=== PATIENT | female | born 1990 | race Caucasian/White ===

== ENCOUNTER → 2016-10-05 | Outpatient (CLI) | payer OTHER ==
[~2016-10-05] MED LIST: PRENTAB26 PO
[2016-10-05 18:10] LABS: GTGD 50 Grams
== END | disposition home or self-care (01) ==
LOC: C.LAB1850 13:51
PROVIDERS: ATTEND Obstetrics & Gynecology
DX: Z34.82 Encounter for supervision of other normal pregnancy, second trimester (principal)

== ENCOUNTER → 2016-12-21 | Outpatient (CLI) | payer OTHER ==
[2016-12-21 19:20] LABS: URINE APPEARANCE CLOUDY (CLEAR); URINE BILIRUBIN NEG (NEG); URINE COLOR DK YELLOW; URINE EPITHELIAL CELL AUTO >30 /lpf (0-5); URINE NITRITE NEG (NEG); URINE SPECIFIC GRAVITY 1.022 (1.000-1.030); UROBILINOGEN NEG (NEG)
[2016-12-21 19:23] LABS: MANUAL MICROSCOPIC REQUIRED? NO; REVIEW REQ? NO
== END | disposition home or self-care (01) ==
LOC: C.LABSPEC 18:03
PROVIDERS: ATTEND Obstetrics & Gynecology
DX: Z34.83 Encounter for supervision of other normal pregnancy, third trimester (principal)

== ENCOUNTER → 2016-12-21 | Outpatient (CLI) | payer OTHER ==
[2016-12-21 16:40] LABS: HEMATOCRIT 32.4 % (37-47)
[2016-12-21 18:52] LABS: GTGD 50 Grams
== END | disposition home or self-care (01) ==
LOC: C.LAB1850 15:46
PROVIDERS: ATTEND Obstetrics & Gynecology
DX: Z34.83 Encounter for supervision of other normal pregnancy, third trimester (principal)

== ENCOUNTER → 2017-01-17 | Outpatient (CLI) | payer OTHER | END | disposition home or self-care (01) | LOC: C.LAB1850 08:43 | PROVIDERS: ATTEND Obstetrics & Gynecology | DX: O28.1 Abnormal biochemical finding on antenatal screening of mother (principal) ==

== ENCOUNTER → 2017-02-14 | Outpatient (CLI) | payer OTHER | END | disposition home or self-care (01) | LOC: C.LABSPEC 15:28 | PROVIDERS: ATTEND Obstetrics & Gynecology | DX: Z34.83 Encounter for supervision of other normal pregnancy, third trimester (principal) ==

== ENCOUNTER 2017-02-17 22:54 | Outpatient (CLI) | payer OTHER ==
[~2017-02-17] VITALS: Ht 170.2 cm; Wt 74.1 kg
[2017-02-18 00:07] VITALS: Ht 170.2 cm; Wt 74.1 kg
== END 2017-02-18 03:00 | disposition home or self-care (01) ==
LOC: C.LD 22:54 → C.OPB 22:54
PROVIDERS: ATTEND Obstetrics & Gynecology
DX: O62.9 Abnormality of forces of labor, unspecified (principal); Z3A.37 37 weeks gestation of pregnancy

== ENCOUNTER 2017-02-22 03:23 | Outpatient (CLI) | payer OTHER ==
[~2017-02-22] VITALS: Ht 170.2 cm; Wt 74.0 kg
[2017-02-22 04:59] VITALS: Ht 170.2 cm; Wt 74.0 kg
--- NOTE | 2017-02-27 12:28 | EDITING REQUIRED CODING QUERY ---
DIAGNOSIS NEEDED To promote full compliance with coding requirements relating to patient care, physician participation is requested in all cases of hims coder uncertainty. Please assist us with the question(s) below: Coding Question: The patient received care in labor and delivery on 02/22/17 as noted within the record. Please document the diagnosis that is being addressed by the medication/treatment. Provider Response: DIAGNOSIS: Labor check. Not in labor Thank you for your assistance, Reina Perales - Machine Filler Shredder
== END 2017-02-22 06:25 | disposition home or self-care (01) ==
LOC: C.LD 03:23 → C.OPB 03:23
PROVIDERS: ATTEND Obstetrics & Gynecology
DX: Z34.83 Encounter for supervision of other normal pregnancy, third trimester (principal); Z3A.37 37 weeks gestation of pregnancy

== ENCOUNTER 2017-02-25 14:22 | Inpatient (IN) | payer OTHER ==
[~2017-02-25] VITALS: Ht 170.2 cm; Wt 74.5 kg
[2017-02-25 15:03] VITALS: Ht 170.2 cm; Wt 74.5 kg
[2017-02-25] MEDS ORDERED: NURSING VERBAL MED ORDER ONE ×2 (15:30)
[2017-02-25] MEDS ORDERED: LACTATED RINGER'S 1000ML 1,000 ML IV SCH (15:45)
[2017-02-25] MEDS ORDERED: PENICILLIN G POTASSIUM IV 3 MU in DEXTROSE 5% 100ML IV PRN (15:45)
[2017-02-25 16:00] LABS: HEMATOCRIT 36.6 % (37-47); MEAN CELL VOLUME 98.1 fL (80-100); MEAN CORPUSCULAR HEMOGLOBIN 34.3 pg (25-34); PLATELET COUNT 199 K/uL (130-400); RED BLOOD COUNT 3.73 M/uL (4.2-5.4); WHITE BLOOD COUNT 12.92 K/uL (4.8-10.8)
[2017-02-25] MEDS ORDERED: PENICILLIN G POTASSIUM IV 6 MU in DEXTROSE 5% 250ML IV SCH (16:00)
[2017-02-25] MEDS ORDERED: LACTATED RINGER'S 1000ML 500 ML IV PRN ×2 (17:52→18:53)
[2017-02-25] MEDS ORDERED: OXYTOCIN 30 UNITS/500ML NSS IV PRN ×2 (18:00→22:45)
[2017-02-25] MEDS ORDERED: BUPIVACAINE 0.25% 30 ML VIAL ONE (18:10)
[2017-02-25] MEDS ORDERED: FENTANYL 2MCG/ML ROPIV 1.25MG/ML 100ML BAG EPI ONE (18:10)
[2017-02-25] MEDS ORDERED: EpHEDrine SULFATE INJ 50 MG/ML AMP ONE (18:10)
[2017-02-25] MEDS ORDERED: FENTANYL CITRATE INJ 50 MCG/1 ML 2 ML VIAL ONE (18:11)
[2017-02-25] MEDS ORDERED: NALBUPHINE HCL INJ 10 MG/ML AMP IV PRN (19:00)
[2017-02-25] MEDS ORDERED: ONDANSETRON INJ 2 MG/ML 2 ML VIAL IV PRN (19:00)
[2017-02-25] MEDS ORDERED: DiphenhydrAMINE HCL 50 MG/ML VIAL IV PRN (19:00)
[2017-02-25] MEDS ORDERED: NALOXONE HCL INJ 0.4 MG/1 ML VIAL/CARP IV PRN (19:00)
[2017-02-25] MEDS ORDERED: EpHEDrine SULFATE INJ 50 MG/ML AMP IV PRN (19:00)
[2017-02-25] MEDS ORDERED: FENTANYL 2MCG/ML ROPIV 1.25MG/ML 100ML BAG EPI PRN (19:00)
[2017-02-25] MEDS ORDERED: ACETAMINOPHEN 325 MG TAB PO PRN (22:45)
[2017-02-25] MEDS ORDERED: BENZOCAINE 20% AER SPR 82.5 GM CAN EXT PRN (22:45)
[2017-02-25] MEDS ORDERED: SUPERCREAM 0.870 % 15GM JAR EXT PRN (22:45)
[2017-02-25] MEDS ORDERED: LANOLIN OINT EXT PRN ×2 (22:45)
--- NOTE | 2017-02-25 23:22 | Anesthesia Procedure Note ---
Anesthesia Epidural Removal Nt Date & Time Feb 25, 2017 at 23:22 Vital Signs Pain Intensity: 0.0 Notes Mental Status: alert / awake / arousable, participated in evaluation Nausea / Vomiting: adequately controlled Pain: adequately controlled Airway Patency, RR, SpO2: stable & adequate BP & HR: stable & adequate Hydration State: stable & adequate Neuraxial Anesthesia: was administered Anesthetic Complications: no major complications apparent, pt satisfied with anesthetic care Epidural: removed without complications, with tip intact
[2017-02-26] VITALS (8 sets, daily range): BP systolic 106–135; BP diastolic 60–83; PULSE 49–74; TEMP 36.4–37.1; O2SAT 98–99
[2017-02-26] MEDS: IBUPROFEN 600 MG TAB PO PRN ×5 (00:02→20:00)
[2017-02-26] MEDS ORDERED: NURSING VERBAL MED ORDER ONE (01:45)
[2017-02-26] MEDS ORDERED: CALCIUM CARBONATE 500 MG CHEWABLE PO PRN (02:00)
--- NOTE | 2017-02-26 03:01 | DELIVERY SUMMARY ---
DATE OF OPERATION: 02/25/2017 DELIVERY NOTE: The patient is a 26-year-old 6, para 3-0-2-3 white female, who with a due date of 03/10/2017 presented with rupture of membranes at approximately 1100 hours today. This was confirmed in labor & delivery several hours later. She received penicillin G prophylaxis because of group B strep positive status. Fluid was clear. She did have a forebag of fluid that was ruptured when she was 4 cm and 90% effaced. Pitocin augmentation was begun. She received epidural and analgesic, which was effective. She pushed effectively over intact perineum for delivery of a viable female . Cord was somewhat short. The infant was placed on the mother's abdomen for attention stimulation after the cord was clamped and cut. There placenta was expressed intact with a 3-vessel cord. A left labial abrasion was bleeding and therefore was repaired with a single figure of eight stitch of 3-0 Vicryl. Estimated blood loss was 300 mL. Mother and were doing well after delivery. I attest to the content of the Intraoperative Record and any orders documented therein. Any exceptions are noted below. MTDD
[2017-02-26] MEDS ORDERED: ACETAMINOPHEN/CODEINE 300/30MG TAB PO PRN (04:15)
[2017-02-26] MEDS: ACETAMINOPHEN/CODEINE 300/30MG TAB PO PRN ×3 (04:17→22:14)
--- NOTE | 2017-02-26 06:44 | OB/GYN Progress Note ---
COSTUME SPECIALIST Progress Note Date of Service Feb 26, 2017. Subjective conversation w/ patient Ambulation: ambulating normally Voiding: no voiding problems Passing Gas: No Diet Tolerance: Nausea/Vomiting Lochia: Small Feeding Type: Breast Feeding Pain: 8/10 back pain Review of Systems Constitutional: No fever, No chills, No sweats Respiratory: No cough, No shortness of breath, No dyspnea on exertion Cardiac: No chest pain, No palpitations Abdomen: + pain, + nausea, + vomiting Sharp back pain that radiates up and down spine, rates as an 8/10 in severity Objective Vital Signs Date Time Temp Pulse Resp B/P (MAP) Pulse Ox O2 Delivery O2 Flow Rate FiO2 02/26/17 04:20 36.4 67 18 135/83 (100) 98 Room Air 02/26/17 00:50 36.6 74 18 128/60 (82) Room Air 02/26/17 00:50 Room Air Physical Exam General Appearance: WELL-APPEARING, NO APPARENT DISTRESS Respiratory/Chest: lungs clear, no accessory muscle use Cardiovascular: regular rate, rhythm, no murmur Abdomen: non tender, soft Fundus: Firm, Non-Tender, Relation to Umbilicus (at the umbilicus) Extremities: non-tender, no calf tenderness Laboratory Results Last 24 Hours Test 02/25/17 15:35 02/25/17 15:50 02/26/17 04:44 Amniotic Fluid Protein POS White Blood Count 12.92 K/uL Red Blood Count 3.73 M/uL Hemoglobin 12.8 g/dL Hematocrit 36.6 % Mean Corpuscular Volume 98.1 fL Mean Corpuscular Hemoglobin 34.3 pg Mean Corpuscular Hemoglobin Concent 35.0 g/dl RDW Standard Deviation 46.9 fL RDW Coefficient of Variation 13.1 % Platelet Count 199 K/uL Mean Platelet Volume 10.0 fL Assessment and Plan Post- Day Number: 1 Continue Routine Care: Resident Physician Supervision Note: I interviewed and examined the patient. Discussed with Dr. Cruz and agree with findings and plan as documented in the note. Any exceptions or clarifications are listed here: [None] Documented By: Mariia Calderon 26 year old female Post Day 1 A-, GBS+, Rubella immune Encourage ambulation, control pain and encourage breast feeding, monitor lochia Continue routine post care
[2017-02-26 07:26] LABS: HEMATOCRIT 33.5 % (37-47)
[2017-02-26] MEDS ORDERED: PRENATAL VITAMIN TAB PO SCH (08:00)
[2017-02-26] MEDS: PRENATAL VITAMIN TAB PO SCH (08:41)
[2017-02-26] MEDS: DOCUSATE SODIUM 100 MG CAP PO SCH ×2 (08:41→20:00)
[2017-02-26] MEDS ORDERED: CYCLOBENZAPRINE HCL 10 MG TAB PO PRN (12:45)
[2017-02-26] MEDS ORDERED: BISACODYL 5 MG TABEC PO SCH (20:00)
[2017-02-27] MEDS: IBUPROFEN 600 MG TAB PO PRN (03:26)
[2017-02-27 07:10] VITALS: BP 110/74; PULSE 52; TEMP 37.2; O2SAT 98
--- NOTE | 2017-02-27 07:19 | OB/GYN Progress Note ---
WILDLIFE MANAGEMENT PROFESSOR Progress Note Date of Service Feb 27, 2017. Subjective conversation w/ patient, physical exam Ambulation: ambulating normally Voiding: no voiding problems, no incontinence Passing Gas: Yes Diet Tolerance: Regular Diet Lochia: Small Feeding Type: Breast Feeding Pain: 02/24 Review of Systems Constitutional: No fever, No chills, No sweats Respiratory: No cough, No shortness of breath Cardiac: No chest pain, No palpitations Abdomen: No pain, No nausea, No vomiting Objective Vital Signs Date Time Temp Pulse Resp B/P (MAP) Pulse Ox O2 Delivery O2 Flow Rate FiO2 02/26/17 23:30 36.5 54 18 117/71 (86) Room Air 02/26/17 23:30 99 Room Air 02/26/17 19:45 36.4 49 20 120/69 (86) Room Air 02/26/17 15:35 Room Air 02/26/17 15:35 37.0 57 16 121/79 (93) 99 Room Air 02/26/17 12:15 36.5 54 20 119/70 (86) 98 Room Air 02/26/17 12:00 37.1 53 18 120/73 (89) 98 Room Air 02/26/17 08:40 Room Air 02/26/17 08:40 37.0 59 18 106/65 (79) 98 Room Air Physical Exam General Appearance: WELL-APPEARING, NO APPARENT DISTRESS Respiratory/Chest: chest non-tender, lungs clear, no respiratory distress, no accessory muscle use Cardiovascular: regular rate, rhythm, no murmur Abdomen: normal bowel sounds, non tender, soft Fundus: Firm, Non-Tender, Relation to Umbilicus (1 cm below) Extremities: non-tender, no calf tenderness Assessment and Plan Post- Day Number: 2 Continue Routine Care: Day 2 A-, GBS-, Rubella immune Hgb 11.9 yesterday Encourage ambulation, encourage breast feeding and monitor lochia Patient to be discharged today Resident Physician Supervision Note: I was present with Dr. Cruz during the history and exam. I discussed the case with the resident and agree with the findings and plan as documented in the note. Any exceptions or clarifications are listed here: PPD#2 doing well. Discharge home today. Discharge instructions discussed. Documented By: Kristi Powell
--- NOTE | 2017-02-27 07:22 | Discharge Instructions ---
Discharge Instructions Date of Service Feb 27, 2017. Admission Reason for Admission: R/O Labor Discharge Discharge Diagnosis / Problem: Vaginal Delivery Discharge Goals Goal(s): Routine recovery after delivery Medications Continue Dispensed Medications: supercream, dermaplast, tucks, lansinoh Activity Recommendations Activity Limitations: per Instructions/Follow-up section . Instructions / Follow-Up Instructions / Follow-Up ACTIVITY RECOMMENDATIONS: * Gradual return to full activity over the next 2-3 weeks. * No lifting - nothing heavier than baby over the next 2-3 weeks. * Do not engage in vigorous exercise, sexual activity or sports until cleared by your physician. * Do not drive or operate any motorized equipment until cleared by your physician. * You may shower/bathe daily. MEDICATIONS: For discomfort or pain, you may use Acetaminophen (Tylenol), Ibuprofen (Advil), or Naproxen (Aleve) following the package directions. For constipation you may use Colace following the package directions. BREAST CARE: If you are not breast feeding: * Wear a supportive bra 24 hours a day for one to two weeks. * Avoid stimulating your breasts and nipples as much as possible during the first few weeks after delivery. * When taking a shower, have the warm water hit your back, not breasts. * When your breasts feel full, apply ice packs. Usually three to four times a day helps ease the discomfort. * Take a mild pain medication (Tylenol / Motrin) when you are uncomfortable. If breast feeding: * Use breast milk to lubricate nipples. Lansinoh cream may be used for sore nipples. You do not need to remove cream prior to breast feeding. If using a different brand of cream, check the label for directions regarding removal of cream prior to nursing. * Wear a supportive bra. * If having problems with breasts or breast feeding, call a home planning consultant salesperson or your health care provider. EPISIOTOMY CARE: After delivery, if you have an episiotomy (stitches), the following steps will ease discomfort and aid healing. * For the first 24 hours after delivery, place ice packs next to your episiotomy to help reduce swelling. * After the first 24 hour-period, sitz baths, either portable or in the tub, are suggested. A shower with a shower arm sprayed over the episiotomy may be comforting. * Nell care should be done after each voiding and bowel movement. Squirt warm water from a plastic bottle over the perineum (region of the body between the anus and urinary opening) and pat dry. * Use Dermoplast to ease discomfort. Shake container. Dinosaur directly over the episiotomy. Place a Tucks on a clean sanitary pad next to your episiotomy. SPECIAL CARE INSTRUCTIONS: When you are discharged from the hospital, it is important for you to follow the instructions listed below: * During the first week at home, you should be able to care for yourself and your baby. In addition, the usual light household activities are encouraged. * Limit your activities to the way you feel. Do not try to clean the house or move furniture. Be sensible. * If you actively engage in sports and have done so up until the time of your delivery, you may resume these activities as soon as you feel able. This may take up to one month or even longer. Use good judgment. * Continue to take your vitamins for at least six weeks after the of your baby. * Your diet need not be limited unless you were on a special diet before your delivery. Breast-feeding mothers need around 2500 calories per day and at least 64-80 ounces of fluid per day (8 to 10 glasses). * You should eat foods from the four major food groups. Crash diets or fad diets are to be avoided. Eating lean meats, fresh fruits and vegetables, low-fat dairy products, high fiber foods and a regular exercise program, will help you get back to your pre- weight without putting your health at risk. * Constipation is sometimes a problem after delivery. Take a mild laxative as needed. If breast feeding, Milk of Magnesia is acceptable to use. You may use a suppository or Fleets enema if no episiotomy. * A daily shower or tub bath is suggested. Be sure to thoroughly and gently dry the perineum. * A bloody vaginal discharge will usually continue until around four weeks post . A small amount of bleeding may continue for as long as six weeks. Vaginal discharge changes from the bright red bleeding after delivery to pink then brownish and finally yellowish-pink before becoming white and disappearing. * Bleeding may increase with activity. Your first period may come in 4-8 weeks. If you are breast feeding, your period may be delayed even longer. * [place] (sex) can begin whenever both you and your partner feel comfortable and do not have any form of genital infection. It is recommended that you wait at least six weeks for internal and external healing to occur. If you have questions, please talk to your health care practitioner. A condom should be used to prevent infection and . * Foreplay, gentle intercourse and lubrication is very important the first several times to prevent pain. A water-based lubricant such as K-Y jelly or Astroglide may be used. * If you have RH negative blood and your baby is RH positive, you will receive RHOGAM by injection prior to discharge. The nurse will give you a card to keep with you that has the date and place that you received RHOGAM after delivery. * During your care, you had a Rubella screen done to check for the presence of rubella antibodies in your blood. If your test was negative, you will receive a Rubella vaccine prior to discharge. This vaccine may cause a fever, soreness at the injection site and flu-like symptoms. If these symptoms persist, notify your health care practitioner. is not advised for one month after a Rubella vaccine. * Verbalizes understanding of car seat law as reviewed with patient nursing. * Car Seat hand-out given and reviewed with patient by nursing. * Shaken baby information reviewed with patient by nursing. Call you doctor if: * Heavy bleeding (saturating several pads an hour) or passing clots the size of your fist. * A fever >101 degrees F (38.3 degrees C) on two occasions four hours apart and /or chills. * Unusual pain in the pelvic or vaginal areas. * "Baby Blues" lasting longer than two weeks. If you have any questions or concerns, call your health care practitioner at . FOLLOW UP VISIT: * Please call the office at to schedule a 6 week examination. It is important you keep this appointment. It is important for you to make arrangements for either yearly or twice yearly check-ups thereafter. Current Hospital Diet Patient's current hospital diet: Regular OB Diet Discharge Diet Recommended Diet: Regular Diet Pending Studies Studies pending at discharge: no Medical Emergencies . Who to Call and When: Medical Emergencies: If at any time you feel your situation is an emergency, please call 911 immediately. . Non-Emergent Contact Non-Emergency issues call your: Primary Care Provider, Extruder Operator Vertical . . "Provider Documentation" section prepared by Drake rCuz. . VTE Core Measure Inpt VTE Proph given/why not?: Treatment not indicated
[2017-02-27] MEDS: DOCUSATE SODIUM 100 MG CAP PO SCH (08:23)
[2017-02-27] MEDS: PRENATAL VITAMIN TAB PO SCH (08:23)
[2017-02-27 14:10] VITALS: BP_DIAS 74; PULSE 52; TEMP 37.2
== END 2017-02-27 14:10 | disposition other institution (70) | DRG 775 ==
LOC: C.OPB 14:22 → C.LD 14:25 → C.OPB 15:30 → C.LD 15:30 → C.OBG 02-26 00:58
PROVIDERS: ADMIT Obstetrics & Gynecology; ATTEND Obstetrics & Gynecology
PROC: 0HQ9XZZ Repair Perineum Skin, External Approach (ICD-10-PCS; principal; 2017-02-25)
PROC: 10E0XZZ Delivery of Products of Conception, External Approach (ICD-10-PCS; principal; 2017-02-25)
DX: O42.02 Full-term premature rupture of membranes, onset of labor within 24 hours of rupture (principal); Z37.0 Single live birth; O70.0 First degree perineal laceration during delivery; O99.824 Streptococcus B carrier state complicating childbirth; O99.334 Smoking (tobacco) complicating childbirth; F17.210 Nicotine dependence, cigarettes, uncomplicated; O99.52 Diseases of the respiratory system complicating childbirth; J45.909 Unspecified asthma, uncomplicated; Z3A.38 38 weeks gestation of pregnancy

== ENCOUNTER → 2018-04-16 | Outpatient (CLI) | payer OTHER | END | disposition home or self-care (01) | LOC: C.LAB1850 15:27 | PROVIDERS: ATTEND Obstetrics & Gynecology | DX: Z32.00 Encounter for pregnancy test, result unknown (principal) ==

== ENCOUNTER → 2018-04-18 | Outpatient (CLI) | payer OTHER | END | disposition home or self-care (01) | LOC: C.LAB1850 16:33 | PROVIDERS: ATTEND Obstetrics & Gynecology | DX: Z32.01 Encounter for pregnancy test, result positive (principal) ==

== ENCOUNTER 2018-12-09 12:05 | Inpatient (IN) ==
[2018-12-09 12:57] LABS: Basophils # (auto) 0.03 K/uL (0-0.2); Basophils % (auto) 0.3 %; Eosinophils # (auto) 0.23 K/uL (0-0.5); Eosinophils % (auto) 2.2 %; Hematocrit (blood only) 32.2 % (37-47); Immature Granulocytes # (auto) 0.06 K/uL (0.00-0.02); Immature Granulocytes % (auto) 0.6 %; Lymphocytes # (auto) 3.38 K/uL (1.2-3.4); Lymphocytes % (auto) 32.6 %; Mean Corpuscular Hgb Conc 34.2 g/dL (32-36); Mean Corpuscular Volume 93.3 fL (80-100); Mean Platelet Volume 10.8 fL (7.4-10.4); Monocytes # (auto) 0.75 K/uL (0.11-0.59); Monocytes % (auto) 7.2 %; Neutrophils # (auto) 5.91 K/uL (1.4-6.5); Neutrophils % (auto) 57.1 %; Platelet Count 195 K/uL (130-400); RDW Coefficient of Variation 13.4 % (11.5-14.5); RDW Standard Deviation 45.7 fL (36.4-46.3); Red Blood Count 3.45 M/uL (4.2-5.4); White Blood Count 10.36 K/uL (4.8-10.8)
[2018-12-09] MEDS ORDERED: LACTATED RINGER'S 500 ML IV ONE (13:02)
[2018-12-09 13:43] LABS: Albumin Level 2.2 gm/dl (3.4-5.0); BUN Creatinine Ratio 14.6 (10-20); Calcium 7.7 mg/dl (8.5-10.1); Creatinine Clr Calc Pharmacy 153.2 ml/min; Est GFR (African American) 142.5; Potassium 3.9 mmol/L (3.5-5.1)
[2018-12-09 13:45] LABS: Albumin Globulin Ratio 0.6 (0.9-2); Bilirubin,Total 0.2 mg/dl (0.2-1); Total Protein 6.2 gm/dl (6.4-8.2)
[2018-12-09 14:02] LABS: Total Protein Urine Random 32.8 mg/dl (0-11.9)
[2018-12-09 14:06] LABS: Amphetamines+Metham, Urine Neg (Neg); Barbiturates, Urine Neg (Neg); Benzodiazepine, Urine Neg (Neg); Cocaine, Urine Neg (Neg); MDMA (Ecstacy), Urine Neg (Neg); Methadone, Urine Neg (Neg); Opiate, Urine Neg (Neg); Phencyclidine, Urine Neg (Neg)
[2018-12-09] MEDS: LACTATED RINGER'S 1,000 ML IV SCH ×2 (14:38→17:28)
--- NOTE | 2018-12-09 15:28 | History & Physical Report ---
Date of Service December 09, 2018 Assessment & Plan (1) 38 weeks gestation of : (2) Elevated blood pressure affecting in third trimester, antepartum: suspect pt will meet criteria for gest htn. if so, will plan induction. pt aware. labs normal and 24hr urine <300mg protein. Cx favorable and would plan pit and arom. GBS neg. Rh neg. Patient aware of plan and criteria to meet dx. History of Present Illness Chief Complaint: sent from office with elevated bp Primary Care Provider: NO PCP 28yo at 38+ wks ega presents to L&D with above cc. Patient has had some noncompliance with visits per her record. Last week was seen and noted increased swelling. Bp was normal. Was advised to collect 24hr urine and return today for office visit. She states she had bp taken as soon as she was in room and bp 160/90 and immediately sent here. She has some headache and upper abdomen pain. She has heart burn feeling. Denies ctx, rom, vb. +FM. pnc c/b 1. poor compliance 2. LGSIL and hpv pos, h/o LEEP, needs colpo but no- showed that appt 3. anxiety/depression 4. h/o opiate addiction, now on subutex 5. smoker 6. rh neg 7. asthma pmh: as above prob list psh: leep x 2, roz, wisdom teeth Allergies Allergy/AdvReac Type Severity Reaction Status Date / Time morphine Allergy Severe ANAPHYLAXIS Verified 02/22/17 04:50 tramadol Allergy Severe ANAPHYLAXIS Verified 02/22/17 04:50 bee venom protein (honey bee) Allergy Unknown ANAPHYLAXIS Verified 02/22/17 0 4:50 Home Medications Home Medications Medication Instructions Recorded Confirmed Type PNV cmb#95-ferrous fumarate-FA 1 tab PO DAILY 12/09/18 12/09/18 History [] albuterol sulfate 2 puff INHALATION QID PRN 12/09/18 12/09/18 History biotin 1 mg PO DAILY 12/09/18 12/09/18 History buprenorphine HCl 8 mg SUBLINGUAL DAILY 12/09/18 12/09/18 History sertraline 100 mg PO DAILY 12/09/18 12/09/18 History Patient History Medical History Anxiety diagnosed at age 11- on Effexor Asthma diagnosed at age 10- uses Albuterol prn and Nebulizer prn Carpal tunnel syndrome 2017 Depression diagnosed at age 11- on Effexor now 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 Now on Subutex 8mg daily Ovarian cyst [place] teeth removed age 14 Surgical History H/O LEEP age 19 and 21 History of cholecystectomy 2016 Family History Father Diabetes Grandfather (Paternal) Diabetes Grandmother (Maternal) Diabetes Grandfather (Maternal) Diabetes Grandfather (Paternal) Heart attack Grandmother (Paternal) Heart attack Social History Preferred Language: Khmer Communication Ability: Effective Beliefs That Will Affect Care: None marital status: Current Living Situation: Spouse Feels Safe at Home: Yes Smoking Status: Current every day smoker Hx Alcohol Use: No Hx Substance Use: No Physical Exam Vital Signs (Past 24 Hours): Last Vital Signs Temp 36.7 C 12/09/18 12:51 Pulse 57 L 12/09/18 14:37 Resp 20 12/09/18 14:05 BP 137/82 12/09/18 14:37 Constitutional: WD/WN, vitals as above Respiratory: normal respiratory effort, lungs clear to auscultation Cardiovascular: Rate/Rhythm: regular rate and regular rhythm Gastrointestinal (Abdomen): soft gravid nt, efw 6-7# Musculoskeletal: +1 edema Neurologic: DTRs +2 no clonus Psychiatric: grossly normal Genitourinary: Manual OB Exam: + cervical dilation 3 cm, + cervical effacement 70% and + station -2 OB Exam Monitor Tracing: + external FHT monitor used (120 mod variability, reactive), + external uterine monitor used (irreg), + category I and + normal FHT variability cephalic by us
[2018-12-09] MEDS ORDERED: OXYTOCIN 30 UNITS/500 ML BAG IV PRN ×2 (16:16→22:08)
[2018-12-09] MEDS ORDERED: LACTATED RINGER'S 1,000 ML IV PRN ×2 (16:16→18:26)
[2018-12-09] MEDS ORDERED: fentaNYL citrate 100 MCG/2 ML VIAL ONE (17:24)
[2018-12-09] MEDS ORDERED: BUPIVACAINE 0.25% 30 ML VIAL ONE (17:24)
[2018-12-09] MEDS ORDERED: ePHEDrine sulfate 50 MG/ML AMP ONE (17:24)
[2018-12-09] MEDS ORDERED: fentaNYL 2MCG/ML ROPIV 1.25MG/ML 100 ML BAG EPI ONE (17:25)
[2018-12-09] MEDS ORDERED: NALOXONE HCL 1 MG in SODIUM CHLORIDE 0.9% 1000ML 1,000 ML IV PRN (18:26)
[2018-12-09] MEDS ORDERED: PROMETHAZINE HCL 6.25 MG in SODIUM CHLORIDE 0.9% 50 ML IV PRN (18:26)
[2018-12-09] MEDS ORDERED: NALOXONE HCL 0.4 MG/1 ML VIAL/CARP IV PRN (18:26)
[2018-12-09] MEDS ORDERED: ONDANSETRON INJ 2 MG/ML 2 ML VIAL IV PRN (18:26)
[2018-12-09] MEDS ORDERED: fentaNYL 2MCG/ML ROPIV 1.25MG/ML 100 ML BAG EPI PRN (18:26)
[2018-12-09] MEDS ORDERED: DiphenhydrAMINE HCL 50 MG/ML VIAL IV PRN (18:26)
[2018-12-09] MEDS ORDERED: NALBUPHINE HCL INJ 10 MG/ML AMP IV PRN (18:26)
[2018-12-09] MEDS ORDERED: ePHEDrine sulfate 50 MG/ML AMP IV PRN (18:26)
--- NOTE | 2018-12-09 18:26 | Anesthesiology Consultation ---
Date of Service December 09, 2018 Assessment & Plan (1) Elevated blood pressure affecting in third trimester, antepartum: Chart Review Chart Review: Acceptable Risk for Surgery and Patient NOT seen in Pre Admission Testing Consults Requested none ASA ASA2 Proposed Anesthesia Anesthesia Type: Labor Epidural Risk / Benefits Reviewed With: PT / POA / Parent / Guardian, Accepts Plan and Informed Consent Obtained NPO Date Last Intake of Fluids: 12/09/18 Time Last Intake of Fluids: 06:00 Date Last Intake of Solids: 12/09/18 Time Last Intake of Solids: 06:00 History Height/Weight Height: 5 ft 7 in Weight: 81.647 kg Allergies Allergy/AdvReac Type Severity Reaction Status Date / Time morphine Allergy Severe ANAPHYLAXIS Verified 02/22/17 04:50 tramadol Allergy Severe ANAPHYLAXIS Verified 02/22/17 04:50 bee venom protein (honey bee) Allergy Unknown ANAPHYLAXIS Verified 02/22/17 04:50 Medications Home Medications Medication Instructions Recorded Confirmed Last Taken PNV cmb#95-ferrous fumarate-FA 1 tab PO DAILY 12/09/18 12/09/18 12/08/18 15:00 [] albuterol sulfate 2 puff INHALATION QID PRN 12/09/18 12/09/18 Unknown biotin 1 mg PO DAILY 12/09/18 12/09/18 12/09/18 08:00 buprenorphine HCl 8 mg SUBLINGUAL DAILY 12/09/18 12/09/18 12/09/18 08:00 sertraline 100 mg PO DAILY 12/09/18 12/09/18 12/09/18 08:00 Active Medications Generic Name Dose Route Start Last Admin Trade Name Freq PRN Reason Stop Dose Admin Lactated Ringer's 1,000 mls @ 125 mls/hr 12/09/18 13:15 12/09/18 17:28 Lr IV 01/08/19 13:14 125 mls/hr .Q8H PRETTY Administration Oxytocin 30 units in 500 mls @ 3 mls/hr 12/09/18 16:16 12/09/18 17:10 Pitocin IV 12/11/18 16:15 0.18 units/hr .Q24H PRN 3 mls/hr Labor Induction/Augmentation Titration Protocol 0.18 UNITS/HR Past Medical History Medical History Anxiety diagnosed at age 11- on Effexor Asthma diagnosed at age 10- uses Albuterol prn and Nebulizer prn Carpal tunnel syndrome 2018 Depression diagnosed at age 11- on Effexor now 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 Now on Subutex 8mg daily Ovarian cyst [place] teeth removed age 14 Past Family History Family History Father Diabetes Grandfather (Paternal) Diabetes Grandmother (Maternal) Diabetes Grandfather (Maternal) Diabetes Grandfather (Paternal) Heart attack Grandmother (Paternal) Heart attack Past Surgical History Surgical History H/O LEEP age 19 and 21 History of cholecystectomy 2016 Social History Smoking Status: Current every day smoker tobacco type: cigarettes Do You Dip or Chew Tobacco: No Hx Alcohol Use: No Hx Substance Use: No substance use type: former substance user Physical Exam Vital Signs Last Vital Signs Temp 36.5 C 12/09/18 15:32 Pulse 57 L 12/09/18 18:23 Resp 18 12/09/18 17:00 BP 146/90 H 12/09/18 18:23 Pulse Ox 99 12/09/18 18:21 ENMT Mouth: no TMJ abnormality Thyromental Distance: > or= 3.5 Finger Breadths Mallampati Class: II Neck normal visual inspection Respiratory normal respiratory effort Cardiovascular Rate/Rhythm: regular rate and regular rhythm Neurologic moves all extremities Psychiatric Orientation: alert Testing Laboratory Results 12/09/18 12:28 12/09/18 12:28
--- NOTE | 2018-12-09 19:41 | Obstetrical Progress Note ---
Date of Service December 09, 2018 Assessment & Plan (1) 38 weeks gestation of : (2) Gestational hypertension w/o significant proteinuria in 3rd trimester: induction on pit. arom now and seems to be changing quickly, was 3-4cm when i opted to arom and now 6cm. fhts overall reassuring categ 1 in last 20min Subjective pt comfortable with epidural Physical Exam Vital Signs (Past 24 Hours): Last Vital Signs Temp 36.4 C L 12/09/18 19:25 Pulse 78 12/09/18 19:36 Resp 18 12/09/18 19:00 BP 147/76 H 12/09/18 19:34 Pulse Ox 100 12/09/18 19:36 Constitutional: WD/WN, vitals as above Genitourinary: Manual OB Exam: + cervical dilation 6 cm, + cervical effacement 90%, + station -1 and + amniotic fluid (AROM) clear OB Exam Monitor Tracing: + external FHT monitor used (120 mod variability, reactive, decel after arom, recovered with position ch) and + external uterine monitor used (q3)
--- NOTE | 2018-12-09 21:01 | Delivery Summary ---
DATE OF OPERATION: 12/09/2018 The patient dilated to complete and pushed to deliver a viable male , Apgars 8 and 9 via over a second-degree perineal laceration. Mouth and nose bulb suctioned at the perineum. The shoulders and body delivered with ease. The infant was vigorous and crying at . Cord clamped at 30 seconds of life and to maternal abdomen where the cord was then doubly clamped and cut. Placenta delivered spontaneously and intact, 3-vessel cord. Hemostasis was achieved with dilute Pitocin and uterine massage. Cervix and sulci intact. Laceration repaired in the usual fashion using 3-0 Vicryl. EBL 300 mL. Mother and baby stable in recovery. I attest to the content of the Intraoperative Record and any orders documented therein. Any exception s are noted below.
[2018-12-09] MEDS ORDERED: ALBUTEROL HFA 8 GM INHALER INH PRN (22:08)
[2018-12-09] MEDS ORDERED: BENZOCAINE 20% AER SPR 82.5 GM CAN EXT PRN (22:08)
[2018-12-09] MEDS ORDERED: HYDROCORTISONE ACETATE 25 MG SUPP PR PRN (22:08)
[2018-12-09] MEDS ORDERED: ACETAMINOPHEN 325 MG TAB PO PRN (22:08)
[2018-12-09] MEDS ORDERED: SUPERCREAM 0.870% 15 GM JAR EXT PRN (22:08)
[2018-12-09] MEDS ORDERED: DIPHTHERIA/TETANUS/PERTUSSIS 0.5 ML SYR/VIAL IM ONE (22:08)
[2018-12-09] MEDS ORDERED: OXYTOCIN 20 UNITS in LACTATED RINGER'S 1,000 ML IV SCH (22:30)
--- NOTE | 2018-12-09 23:11 | Anesthesia Procedure Note ---
Date of Service December 09, 2018 Anesthesia Post Epidural Note Vital Signs Vital Signs: Temp Pulse Resp BP Pulse Ox 36.6 C 60 18 145/67 H 100 12/09/18 21:02 12/09/18 23:00 12/09/18 22:00 12/09/18 23:00 12/09/18 21:06 Pain Intensity Bilateral Abdomen: Pain Intensity: 0 Notes Mental Status: alert / awake / arousable Patient Amnestic to Procedure: Yes Nausea / Vomiting: adequately controlled Pain: adequately controlled Airway Patency, RR, SpO2: stable & adequate BP & HR: stable & adequate Hydration State: stable & adequate Neuraxial Anesthesia: was administered and sensory block is resolving Anesthetic Complications: no major complications apparent and Pt Satisfied with anesthetic care Epidural: Removed without complications and With tip intact
[2018-12-10] MEDS: IBUPROFEN 600 MG TAB PO PRN ×3 (00:12→17:18)
--- NOTE | 2018-12-10 07:32 | Obstetrical Progress Note ---
Date of Service December 10, 2018 Assessment & Plan (1) 38 weeks gestation of : (2) Gestational hypertension w/o significant proteinuria in 3rd trimester: routine care, bps noted. will watch. baby being watched for withdrawal, so far ok per pt. we are contacting her subutex doctors to get dosing of med. Subjective Ambulation: ambulating normally Voiding: no voiding problems Diet Tolerance:: regular diet Lochia:: Small Feeding Type:: breast feeding having uterine cramps. Physical Exam Vital Signs (Past 24 Hours) Last Vital Signs Temp 36.5 C 12/10/18 04:00 Pulse 56 L 12/10/18 04:00 Resp 18 12/10/18 04:00 BP 147/87 H 12/10/18 04:00 Pulse Ox 99 12/10/18 04:00 Constitutional WD/WN, vitals as above Respiratory normal respiratory effort, lungs clear to auscultation Cardiovascular Rate/Rhythm: regular rate and regular rhythm Gastrointestinal (Abdomen) Inspection/Auscultation: abdomen normal to inspection Percussion/Palpation: abdomen soft Fundus firm 2cm down Musculoskeletal non tender calves Psychiatric A+Ox3, euthymic affect
[2018-12-10] MEDS ORDERED: SERTRALINE HCL 100 MG TABLET PO SCH (09:00)
[2018-12-10] MEDS ORDERED: BUPRENORPHINE HCL 8 MG SUBL SL SCH (09:00)
[2018-12-10] MEDS: BUPRENORPHINE HCL 8 MG SUBL SL SCH ×3 (09:49→20:54)
[2018-12-10] MEDS: DOCUSATE SODIUM 100 MG CAP PO SCH ×2 (09:49→20:48)
--- NOTE | 2018-12-11 06:39 | Obstetrical Progress Note ---
Date of Service December 11, 2018 Assessment & Plan (1) Gestational hypertension w/o significant proteinuria in 3rd trimester: f/u in office in one week for check. s/s pet reviewed. BPs noted, do not feel in range for treatment at this point. She has no s/s of pet. (2) 38 weeks gestation of : Plan d/c today. Instructions given. Stressed the importance of f/u. Day #:: 2 Subjective Ambulation: ambulating normally Voiding: no voiding problems Passing Gas:: Yes Diet Tolerance:: regular diet Lochia:: Small Feeding Type:: breast feeding minimal pain Physical Exam Vital Signs (Past 24 Hours) Last Vital Signs Temp 36.5 C 12/10/18 23:20 Pulse 56 L 12/10/18 23:20 Resp 16 12/10/18 23:20 BP 132/84 12/10/18 23:20 Pulse Ox 98 12/10/18 23:20 Constitutional WD/WN, vitals as above bps running 130-160/80-90 Cardiovascular Extremities: no edema Gastrointestinal (Abdomen) soft, nt, nd, fundus firm 1 below u
[2018-12-11 08:05] VITALS: TEMP 97.9
[2018-12-11 09:30] LABS: Hematocrit (blood only) 34.2 % (37-47); Hemoglobin 11.5 g/dL (12.0-16.0); Platelet Count 220 K/uL (130-400)
[2018-12-11 09:48] LABS: Creatinine Clr Calc Pharmacy 141.3 ml/min; Est GFR (African American) 138.8; Est GFR (Non-African American) 119.7
[2018-12-11] MEDS: IBUPROFEN 600 MG TAB PO PRN ×2 (10:04→20:08)
[2018-12-11] MEDS: BUPRENORPHINE HCL 8 MG SUBL SL SCH ×2 (10:04→14:22)
[2018-12-11] MEDS ORDERED: VENLAFAXINE HCL 50 MG TAB PO SCH (10:45)
[2018-12-11] MEDS: DOCUSATE SODIUM 100 MG CAP PO SCH ×2 (14:43→20:08)
[2018-12-11 17:18] VITALS: BP 148/88; PULSE 60; O2SAT 97
== END 2018-12-11 20:10 | disposition home or self-care (01) | DRG 806 ==
LOC: OPB 12:05 → 4S1 12:08 → 4S2 23:30

== ENCOUNTER 2020-01-28 06:13 | Inpatient (IN) ==
[2020-01-28] MEDS ORDERED: OXYTOCIN 30 UNITS/500 ML BAG IV PRN ×3 (08:14→16:44)
[2020-01-28] MEDS ORDERED: LACTATED RINGER'S 1,000 ML IV PRN (08:14)
--- NOTE | 2020-01-28 08:14 | History & Physical Report ---
Date of Service January 28, 2020 Assessment & Plan (1) Encounter for induction of labor: Dunia is a 29 yo at 39w 0d here for planned IOL due to persistent, painful LE edema. - admit to L&D - begin IVF and Pitocin - anesthesia consult ordered, patient desires epidural - anticipate vaginal delivery (2) Need for rhogam due to Rh negative mother: - patient received 1st dose of Rhogam late (at 32 weeks) - will type and screen to assess for seroconversion - will administer Rhogam in post- period if mother remains rh - and baby's blood type returns as rh+ (3) History of gestational hypertension: - places patient at increased risk for pre-eclampsia - blood pressures were normal throughout - BP currently at 135/78 - continue to closely monitor - urine dip to assess for proteinuria (4) complicated by Suboxone maintenance, antepartum: - continue home dose suboxone, 8mg, TID - Urine drug screen ordered - will order hep C screen given history of IV drug abuse - social and political studies professor consult in post- period (5) High risk human papillomavirus (HPV) infection affecting in third trimester, antepartum: - patient with abnormal PAP at start of this - colposcopy on 01/07/20 abnormal, plan for repeat at 8 weeks post- with Dr. Ontiveros - patient with history of LEEP x 2 in early 20s (6) Insufficient care: - history of compliance issues - will emphasize importance of follow-up care (7) Abnormal biochemical finding on screening of mother: - 1 hr GTT abnormal, patient never had 2 hr GTT done - presumed gestational diabetic (8) Bilateral leg edema: - persistent throughout 3rd trimester - reason for IOL - anticipate improvement in post- period (9) Grand multiparity: (10) Short interval between pregnancies complicating in third trimester, antepartum: History of Present Illness Primary Care Provider: Thaddeus Ennis MD Dunia is a 29 yo at 39w 0d ( dated via [facility]) here for IOL due to painful lower extremity edema that has persisted throughout her third trimester. Dunia was a transfer of care from [facility] at 32 weeks gestation based on her preference of care. Her has been complicated by various factors including subutex use (prescribed by [facility]), current tobacco use (1/2 PPD), and a short interval of conception from her last child. Dunia had an abnormal PAP at the start of the , which was followed up with a colposcopy on 01/07/[address] Ontiveros. She is scheduled to have a repeat colposcopy at 8 weeks post-. She has a history of LEEP x 2 in her early 20s. Additionally, she has a history of gestational hypertension/pre-eclampsia, although her blood pressure and lab work have been normal throughout this . She was not started on an anti-hypertensive agent or a daily aspirin during this . She has a history of mild-intermittent asthma, but has not needed to use her albuterol rescue inhaler recently. Medication use during this includes only subutex and PNV. There have also been issues with compliance, missing multiple scheduled OB visits. She is feeling irregular contractions. + movement. Had some spotting after cervical exam in clinic yesterday, but denies additional vaginal bleeding. No fluid loss. Labs Blood type: A- Antibody Screen: neg H.7 Hct: 33.8 Plt: 178 Rubella: immune VDRL/RPR: non-reactive Gonorrhea: neg Chlamydia: neg GBS: neg HIV: neg HbsAq: neg Glucose Tolerance x2: elevated 1 hour reading, patient never got 2 hour GTT done Allergies Allergy/AdvReac Type Severity Reaction Status Date / Time morphine Allergy Severe ANAPHYLAXIS Verified 01/27/20 15:55 tramadol Allergy Severe ANAPHYLAXIS Verified 01/27/20 15:55 bee venom protein (honey bee) Allergy Unknown ANAPHYLAXIS Verified 01/27/20 15:55 Home Medications Home Medications Medication Instructions Recorded Confirmed Type PNV cmb#95-ferrous fumarate-FA 1 tab PO DAILY 12/09/18 01/28/20 History [] buprenorphine HCl 8 mg SUBLINGUAL TID 12/09/18 01/28/20 History cholecalciferol (vitamin D3) 1,000 unit PO DAILY 01/20/20 01/28/20 History [Vitamin D3] omeprazole magnesium [Prilosec OTC] 20 mg PO DAILY 01/20/20 01/28/20 History Patient History Medical History Anxiety (Chronic) diagnosed at age 11- on Effexor Asthma (Chronic) diagnosed at age 10- uses Albuterol prn and Nebulizer prn Depression (Chronic) diagnosed at age 11- on Effexor now History of chicken pox History of heroin use (Resolved) 5-6 years ago; was drug free until 1-2 years ago when she did opiods; then sought treatment and now on Subutex for last 1.5 years HPV (human papilloma virus) infection (Inactive) colpo done- low grade abnormality- repeat in 12 months Mild dysplasia of cervix (BRADEN I) (Resolved) Opioid abuse (Resolved) 1.5 years ago. Now on Subutex 8mg daily Ovarian cyst Surgical History H/O LEEP age 19 and 21 History of cholecystectomy 2016 [place] teeth removed age 14 Family History Father Diabetes Grandfather (Paternal) Diabetes Grandmother (Maternal) Diabetes Lung cancer Grandfather (Maternal) Diabetes Grandfather (Paternal) Myocardial infarction Grandmother (Paternal) Myocardial infarction Social History Preferred Language: Niuean Communication Ability: Effective Spine Specialist Required: No Beliefs That Will Affect Care: None marital status: marital status details: Drake Boswell (34) [phone] Current Living Situation: Spouse and Family Current Living Situation Comment: and children current occupational status: unemployed current occupation: unemployed Feels Safe at Home: Yes Smoking Status: Current every day smoker Tobacco Type: cigarettes ; Do You Dip or Chew Tobacco: No ; Second Hand Exposure: No ; Hx Alcohol Use: Yes Hx Substance Use: No Review of Systems no fever, no chills and no sweats no worsening vision no cough and no dyspnea no chest pain, no palpitations and no calf pain no nausea, no vomiting, no constipation and no diarrhea/loose stools no dysuria and no urinary frequency Physical Exam Constitutional: WD/WN, vitals as above Eyes: + anicteric sclerae Neck: normal visual inspection Respiratory: normal respiratory effort, lungs clear to auscultation does not use accessory muscles Auscultation: no crackles, no rales, no wheezes and no pleural rub Cardiovascular: Rate/Rhythm: regular rate and regular rhythm Heart Sounds: normal S1 and normal S2; no gallop, no murmur and no cardiac rub tense, +1 bilateral pitting edema to the knee; overlying faint erythema on b/l LE, no warmth. unable to appreciate pedal pulses Gastrointestinal (Abdomen): Gravid. Uterus at term; + heart tones; vertex position. EFW: 6-7 lbs Neurologic: awake; no focal motor deficits Psychiatric: A+Ox3, euthymic affect Genitourinary: OB Exam Monitor Tracing: + external FHT monitor used Cervical Exam: 3 cm/ 50% effacement/ 0 station, soft and posterior Results & Data Vital Signs (Past 12 Hours) Vital Signs Temp Pulse Resp BP 01/28/20 07:57 73 135/78 01/28/20 07:56 36.5 C 18 Monitoring External Monitor Baseline HR: 130 bpm Variability: moderate Accelerations: 2 in 20min Decelerations: none Category: I Tocodynamometer Contractions: occurring irregular on monitor Supervising Physician Co-Signing Physician Notes Resident Physician Supervision Note: I interviewed and examined the patient. Discussed with Dr. Jean-Baptiste and agree with findings and plan as documented in the note. Any exceptions or clarifications are listed here: [None] Documented By: Mariia Jefferson MD, FACOG Resident Activity Tracking Resident Involvement: Resident Care Provided Care Provided: OB Delivery
[2020-01-28 08:40] LABS: Hematocrit (blood only) 33.8 % (37-47); Hemoglobin 11.7 g/dL (12.0-16.0); Mean Corpuscular Hemoglobin 33.7 pg (25-34); Mean Corpuscular Volume 97.4 fL (80-100); Mean Platelet Volume 9.5 fL (7.4-10.4); Platelet Count 178 K/uL (130-400); RDW Coefficient of Variation 13.1 % (11.5-14.5); RDW Standard Deviation 45.4 fL (36.4-46.3); Red Blood Count 3.47 M/uL (4.2-5.4); White Blood Count 8.15 K/uL (4.8-10.8)
[2020-01-28 08:53] LABS: Mean Corpuscular Hgb Conc 34.6 g/dL (32-36)
[2020-01-28] MEDS ORDERED: ALBUTEROL HFA 8 GM INHALER INH PRN (09:20)
[2020-01-28] MEDS: NICOTINE 21 MG/24 HR TDSY TD SCH (09:43)
[2020-01-28 09:47] LABS: Amphetamines+Metham, Urine Neg (Neg); Barbiturates, Urine Neg (Neg); Benzodiazepine, Urine Neg (Neg); Cocaine, Urine Neg (Neg); MDMA (Ecstacy), Urine Neg (Neg); Methadone, Urine Neg (Neg); Opiate, Urine Neg (Neg); Phencyclidine, Urine Neg (Neg)
--- NOTE | 2020-01-28 10:19 | Anesthesiology Consultation ---
Date of Service January 28, 2020 Assessment & Plan Chart Review Chart Review: Acceptable Risk for Surgery, Patient NOT seen in Pre Admission Testing and Acceptable Risk for Labor Epidural Consults Requested none ASA ASA3 Proposed Anesthesia Anesthesia Type: General, Labor Epidural and CSE History Height/Weight Height: 5 ft 7 in Weight: 78.471 kg Allergies Allergy/AdvReac Type Severity Reaction Status Date / Time morphine Allergy Severe ANAPHYLAXIS Verified 01/27/20 15:55 tramadol Allergy Severe ANAPHYLAXIS Verified 01/27/20 15:55 bee venom protein (honey bee) Allergy Unknown ANAPHYLAXIS Verified 01/27/20 15:55 Medications Home Medications Medication Instructions Recorded Confirmed Last Taken PNV cmb#95-ferrous fumarate-FA 1 tab PO DAILY 12/09/18 01/28/20 01/27/20 06:00 [] buprenorphine HCl 8 mg SUBLINGUAL TID 12/09/18 01/28/20 01/28/20 06:00 cholecalciferol (vitamin D3) 1,000 unit PO DAILY 01/20/20 01/28/20 01/28/20 06:00 [Vitamin D3] omeprazole magnesium [Prilosec OTC] 20 mg PO DAILY 01/20/20 01/28/20 01/27/20 06:00 Active Medications Generic Name Dose Route Start Last Admin Trade Name Freq PRN Reason Stop Dose Admin Lactated Ringer's 1,000 mls @ 125 mls/hr 01/28/20 08:14 01/28/20 09:15 Lr IV 01/30/20 08:13 125 mls/hr .Q8H PRN Administration L&D Protocol Protocol Oxytocin 30 units in 500 mls @ 1 mls/hr 01/28/20 08:57 01/28/20 09:48 Pitocin IV 01/30/20 08:56 0.06 units/hr .Q24H PRN 1 mls/hr Labor Induction/Augmentation Administration Protocol 0.06 UNITS/HR Nicotine 21 mg 01/28/20 09:15 01/28/20 09:43 Nicoderm Cq TD 02/27/20 09:14 21 mg QAM PRETTY Administration Past Medical History Medical History Anxiety (Chronic) diagnosed at age 11- on Effexor Asthma (Chronic) diagnosed at age 10- uses Albuterol prn and Nebulizer prn Depression (Chronic) diagnosed at age 11- on Effexor now History of chicken pox History of heroin use (Resolved) 5-6 years ago; was drug free until 1-2 years ago when she did opiods; then sought treatment and now on Subutex for last 1.5 years HPV (human papilloma virus) infection (Inactive) colpo done- low grade abnormality- repeat in 12 months Mild dysplasia of cervix (BRADEN I) (Resolved) Opioid abuse (Resolved) 1.5 years ago. Now on Subutex 8mg daily Ovarian cyst Exercise / Class Metabolic Activity II 4-5 Yardwork/Stairs/Walk up hill Past Family History Family History Father Diabetes Grandfather (Paternal) Diabetes Grandmother (Maternal) Diabetes Lung cancer Grandfather (Maternal) Diabetes Grandfather (Paternal) Myocardial infarction Grandmother (Paternal) Myocardial infarction Past Surgical History Surgical History H/O LEEP age 19 and 21 History of cholecystectomy 2016 [place] teeth removed age 14 Past Anesthesia History No Hx of Anesthesia Complications and No Family Hx of Anesthesia Complications History of PONV No Hx of PONV and No Hx of Motion Sickness Social History Smoking Status: Current every day smoker tobacco type: cigarettes Do You Dip or Chew Tobacco: No Hx Alcohol Use: Yes Hx Substance Use: No substance use type: heroin and prescription drug Substance Use Type Other:: HX pain pills and heroin, states clean for approx 6 years Physical Exam Vital Signs Last Vital Signs Temp 36.5 C 01/28/20 07:56 Pulse 74 01/28/20 09:53 Resp 18 01/28/20 09:51 BP 119/66 01/28/20 09:53 Testing Laboratory Results 01/28/20 08:28 Blood Type A Negative 01/28/20 08:28 Antibody Screen POSITIVE A 01/28/20 08:28
[2020-01-28] MEDS ORDERED: ePHEDrine sulfate 50 MG/ML AMP ONE (11:08)
[2020-01-28] MEDS ORDERED: fentaNYL 2MCG/ML ROPIV 1.25MG/ML 100 ML BAG EPI ONE (11:09)
[2020-01-28] MEDS ORDERED: fentaNYL citrate 100 MCG/2 ML VIAL ONE (11:09)
[2020-01-28] MEDS ORDERED: BUPIVACAINE 0.25% 30 ML VIAL ONE (11:09)
[2020-01-28] MEDS ORDERED: DiphenhydrAMINE HCL 50 MG/ML VIAL IV PRN (11:59)
[2020-01-28] MEDS ORDERED: ePHEDrine sulfate 50 MG/ML AMP IV PRN (11:59)
[2020-01-28] MEDS ORDERED: NALOXONE HCL 1 MG in SODIUM CHLORIDE 0.9% 1000ML 1,000 ML IV PRN (11:59)
[2020-01-28] MEDS ORDERED: NALOXONE HCL 0.4 MG/1 ML VIAL/CARP IV PRN (11:59)
[2020-01-28] MEDS ORDERED: NALBUPHINE HCL INJ 10 MG/ML AMP IV PRN (11:59)
[2020-01-28] MEDS ORDERED: fentaNYL 2MCG/ML ROPIV 1.25MG/ML 100 ML BAG EPI PRN (11:59)
[2020-01-28] MEDS ORDERED: KETOROLAC 30 MG/ML VIAL ONE (16:23)
--- NOTE | 2020-01-28 16:25 | Anesthesia Procedure Note ---
Date of Service January 28, 2020 Anesthesia Post Epidural Note Vital Signs Vital Signs: Temp Pulse Resp BP Pulse Ox 36.5 C 83 18 107/66 100 01/28/20 13:14 01/28/20 16:14 01/28/20 15:00 01/28/20 16:14 01/28/20 16:04 Pain Intensity Abdomen: Pain Intensity: 0 Notes Mental Status: alert / awake / arousable Nausea / Vomiting: adequately controlled Pain: adequately controlled Airway Patency, RR, SpO2: stable & adequate BP & HR: stable & adequate Hydration State: stable & adequate Neuraxial Anesthesia: was administered and sensory block is resolving Anesthetic Complications: no major complications apparent Epidural: Removed without complications and With tip intact
[2020-01-28] MEDS: buprenorphine HCL 8 MG SUBL SL SCH ×2 (16:31→22:08)
[2020-01-28] MEDS ORDERED: bisacodyL 10 MG SUPP PR PRN (16:44)
[2020-01-28] MEDS ORDERED: HYDROCORTISONE ACETATE 25 MG SUPP PR PRN (16:44)
[2020-01-28] MEDS ORDERED: SUPERCREAM 0.870% 15 GM JAR EXT PRN (16:44)
[2020-01-28] MEDS ORDERED: BENZOCAINE 20% AER SPR 82.5 GM CAN EXT PRN (16:44)
[2020-01-28] MEDS ORDERED: KETOROLAC TROMETHAMINE 15 MG/ML VIAL IM ONE (16:44)
[2020-01-28] MEDS ORDERED: DIPHTHERIA/TETANUS/PERTUSSIS 0.5 ML SYR/VIAL IM ONE (16:44)
[2020-01-28] MEDS: DOCUSATE SODIUM 100 MG CAP PO SCH (20:33)
[2020-01-28] MEDS: IBUPROFEN 600 MG TAB PO PRN (21:35)
[2020-01-28] MEDS: ACETAMINOPHEN 325 MG TAB PO PRN (23:40)
[2020-01-29] MEDS: IBUPROFEN 600 MG TAB PO PRN ×5 (01:05→21:00)
--- NOTE | 2020-01-29 01:56 | Delivery Summary ---
DATE OF OPERATION: 01/28/2020 The patient is a 29-year-old multiparous white female who presents at 39 weeks for planned induction of labor because of persistent painful lower extremity edema. She had a favorable cervix at 3 cm dilation. She was begun on Pitocin and after she received effective epidural analgesia, her membranes were ruptured for copious amount of clear fluid. She then progressed to full dilation and pushed effectively over 1 contraction for delivery of a viable male over intact perineum. The rest of the was delivered easily and was placed on the mother's abdomen for further attention and drying. There was spontaneous crying and the was moving all 4 limbs. There was a loose cord around the infant's right ankle as well at delivery. The cord was clamped and cut after 30 seconds and the cord had clamped and stopped pulsating. Placenta was expressed intact with a 3-vessel cord. A first-degree perineal laceration was repaired with 3-0 chromic in the usual fashion. Estimated blood loss was 250 mL. Mother and were doing well after delivery. I attest to the content of the Intraoperative Record and any orders documented therein. Any exception s are noted below.
[2020-01-29] MEDS: ACETAMINOPHEN 325 MG TAB PO PRN (05:37)
[2020-01-29 06:26] LABS: Hemoglobin 11.9 g/dL (12.0-16.0); Mean Corpuscular Hemoglobin 33.1 pg (25-34); Mean Corpuscular Volume 97.5 fL (80-100); Mean Platelet Volume 9.8 fL (7.4-10.4); Platelet Count 183 K/uL (130-400); RDW Coefficient of Variation 13.2 % (11.5-14.5); RDW Standard Deviation 46.3 fL (36.4-46.3); Red Blood Count 3.59 M/uL (4.2-5.4); White Blood Count 10.64 K/uL (4.8-10.8)
--- NOTE | 2020-01-29 07:06 | Obstetrical Progress Note ---
Date of Service January 29, 2020 Assessment & Plan (1) Status post vaginal delivery: Dunia is a on PPD1 after at 39w - GBS neg, Rh-, Rubella immune -Vitals reviewed and WNL -Hemoglobin reviewed: stable at 11.9 -patient is doing clinically well continue routine post- care. - After discharge will have [address] Rossi. (2) Need for rhogam due to Rh negative mother: - baby's blood type is O+; will order Rhogam (3) History of gestational hypertension: - places patient at increased risk for pre-eclampsia - blood pressures were normal throughout - BP currently at 116/78 - continue to closely monitor (4) complicated by Suboxone maintenance, antepartum: - continue home dose suboxone, 8mg, TID - Urine drug screen normal on admission - hep C neg - social worker masters consult placed (5) High risk human papillomavirus (HPV) infection affecting in third trimester, antepartum: - patient with abnormal PAP at start of this - colposcopy on 01/07/20 abnormal, plan for repeat at 8 weeks post- with Dr. Ontiveros - patient with history of LEEP x 2 in early 20s (6) Insufficient care: - history of compliance issues - will emphasize importance of follow-up care (7) Abnormal biochemical finding on screening of mother: - 1 hr GTT abnormal, patient never had 2 hr GTT done - presumed gestational diabetic (8) Bilateral leg edema: - persistent throughout 3rd trimester - reason for IOL - mild improvement in post- period (9) Grand multiparity: (10) Short interval between pregnancies complicating in third trimester, antepartum: Admission and Anticipated Discharge Date Admission Date: January 28, 2020 Supervising Physician Co-Signing Physician Notes Resident Physician Supervision Note: I interviewed and examined the patient. Discussed with Dr. Jean-Baptiste and agree with findings and plan as documented in the note. Any exceptions or clarifications are listed here: [None] Documented By: Mariia Jefferson MD, FACOG Subjective Ambulation: ambulating normally Voiding: no voiding problems Passing Gas:: Yes Diet Tolerance:: regular diet Lochia:: Small Feeding Type:: breast feeding Review of Systems Constitutional: no fever, no chills and no sweats Eyes: no worsening vision Respiratory: no cough and no dyspnea Cardiovascular: + edema (bilateral LE); no chest pain, no palpitations and no calf pain Gastrointestinal: no nausea and no vomiting Genitourinary: no dysuria and no urinary frequency Neurologic: no headache(s) Physical Exam Constitutional: WD/WN, vitals as above no acute distress Respiratory: normal respiratory effort, lungs clear to auscultation does not use accessory muscles Auscultation: no crackles, no rales, no rhonchi, no wheezes and no pleural rub Cardiovascular: Rate/Rhythm: regular rate and regular rhythm Heart Sounds: normal S1 and normal S2; no gallop, no murmur and no cardiac rub Extremities: + pedal edema (+2 bilateral pedal edema with overlying erythema. no warmth); no calf tenderness Gastrointestinal (Abdomen): Inspection/Auscultation: normal bowel sounds; abdomen not distended Percussion/Palpation: abdomen soft Genitourinary: Uterus: fundus firm, palpable 2 cm below the umbilicus Results & Data ([facility]) Vital Signs (Past 12 Hours) Vital Signs Temp Pulse Resp BP Pulse Ox 01/29/20 04:30 36.6 C 71 20 116/78 98 01/28/20 23:45 36.5 C 70 20 117/69 100 01/28/20 19:20 36.5 C 71 20 127/76 100 Resident Activity Tracking Resident Involvement: Resident Care Provided Care Provided: OB Delivery
[2020-01-29] MEDS: PRENATAL VITAMIN 1 TAB PO SCH (08:25)
[2020-01-29] MEDS: DOCUSATE SODIUM 100 MG CAP PO SCH ×2 (08:25→21:01)
[2020-01-29] MEDS: PANTOprazole 40 MG TAB PO SCH (08:26)
[2020-01-29] MEDS: CHOLECALCIFEROL 1,000 UNITS 25 MCG TAB PO SCH (08:26)
[2020-01-29] MEDS: buprenorphine HCL 8 MG SUBL SL SCH ×3 (08:26→21:01)
[2020-01-29] MEDS: NICOTINE 21 MG/24 HR TDSY TD SCH (08:27)
[2020-01-29] MEDS ORDERED: bisacodyL 5 MG TABEC PO SCH (20:00)
[2020-01-30 06:01] LABS: Hematocrit (blood only) 33.6 % (37-47); Hemoglobin 11.9 g/dL (12.0-16.0)
--- NOTE | 2020-01-30 06:03 | Obstetrical Progress Note ---
Date of Service January 30, 2020 Assessment & Plan (1) Status post vaginal delivery: Dunia is a on PPD2 after at 39w - GBS neg, Rh-, Rubella immune -Vitals reviewed and WNL -patient is doing clinically well Will move to nesting status today. - After discharge will have [address] Rossi. (2) Need for rhogam due to Rh negative mother: - baby's blood type is O+; Rhogam ordered. (3) History of gestational hypertension: - places patient at increased risk for pre-eclampsia - blood pressures were normal throughout and post- period - BP currently at 131/80 (4) complicated by Suboxone maintenance, antepartum: - continue home dose suboxone, 8mg, TID - Urine drug screen normal on admission - hep C neg - geriatric social work professor consult placed (5) High risk human papillomavirus (HPV) infection affecting in third trimester, antepartum: - patient with abnormal PAP at start of this - colposcopy on 01/07/20 abnormal, plan for repeat at 8 weeks post- with Dr. Ontiveros - patient with history of LEEP x 2 in early 20s (6) Insufficient care: - history of compliance issues - will emphasize importance of follow-up care (7) Abnormal biochemical finding on screening of mother: - 1 hr GTT abnormal, patient never had 2 hr GTT done - presumed gestational diabetic - consider glucose check in post- visit (8) Bilateral leg edema: - persistent throughout 3rd trimester - reason for IOL - mild improvement in post- period (9) Grand multiparity: (10) Short interval between pregnancies complicating in third trimester, antepartum: Admission and Anticipated Discharge Date Admission Date: January 28, 2020 Supervising Physician Co-Signing Physician Notes Resident Physician Supervision Note: I interviewed and examined the patient. Discussed with Dr. Jean-Baptiste and agree with findings and plan as documented in the note. Any exceptions or clarifications are listed here: PPD#2 doing well. PEPE, will room in. Documented By: Kristi Powell DO Subjective Ambulation: ambulating normally Voiding: no voiding problems Passing Gas:: Yes Diet Tolerance:: regular diet Lochia:: Small Feeding Type:: breast feeding Review of Systems Constitutional: no fever, no chills and no sweats Eyes: no worsening vision Respiratory: no cough and no dyspnea Cardiovascular: + edema (bilateral LE) Gastrointestinal: no nausea and no vomiting Genitourinary: no dysuria and no urinary frequency Neurologic: no headache(s) Physical Exam Constitutional: WD/WN, vitals as above no acute distress Eyes: + anicteric sclerae Neck: normal visual inspection Respiratory: normal respiratory effort, lungs clear to auscultation does not use accessory muscles Auscultation: no crackles, no rales, no rhonchi, no wheezes and no pleural rub Cardiovascular: Rate/Rhythm: regular rate and regular rhythm Heart Sounds: normal S1 and normal S2; no gallop, no murmur and no cardiac rub Extremities: + pedal edema (+2 bilateral pedal edema with overlying erythema. no warmth); no calf tenderness Gastrointestinal (Abdomen): Inspection/Auscultation: normal bowel sounds; abdomen not distended Percussion/Palpation: abdomen soft Results & Data ([facility]) Vital Signs (Past 12 Hours) Vital Signs Temp Pulse Resp BP 01/30/20 00:01 36.5 C 65 16 131/80 Resident Activity Tracking Resident Involvement: Resident Care Provided Care Provided: OB Delivery
[2020-01-30] MEDS: PRENATAL VITAMIN 1 TAB PO SCH (08:33)
[2020-01-30] MEDS: buprenorphine HCL 8 MG SUBL SL SCH ×2 (08:33→13:47)
[2020-01-30] MEDS: DOCUSATE SODIUM 100 MG CAP PO SCH (08:33)
[2020-01-30] MEDS: CHOLECALCIFEROL 1,000 UNITS 25 MCG TAB PO SCH (08:34)
[2020-01-30] MEDS: PANTOprazole 40 MG TAB PO SCH (08:34)
[2020-01-30] MEDS: NICOTINE 21 MG/24 HR TDSY TD SCH (08:34)
[2020-01-30] MEDS: IBUPROFEN 600 MG TAB PO PRN (13:45)
== END 2020-01-30 14:07 | disposition home or self-care (01) | DRG 807 ==
LOC: 4S1 07:41 → 4S2 18:55

== ENCOUNTER 2023-03-13 13:52 | Inpatient (IN) ==
[2023-03-13] MEDS ORDERED: OXYTOCIN 30 UNITS/500 ML BAG IV PRN ×2 (15:47→23:22)
[2023-03-13] MEDS ORDERED: LIDOCAINE 1% LOCAL 20 ML VIAL INFIL PRN (15:47)
--- NOTE | 2023-03-13 15:52 | Labor Progress Brief Note ---
Date of Service March 13, 2023 Assessment & Plan (1) : Plan: 1 yo at 39 + week induction for fast labors and grand multip FHR; CAT1 Ctx; minimal VE; ft/50%/post Bedside sono; Vt Plan admit labs Cytotoec Admission and Anticipated Discharge Date Admission Date: March 13, 2023 Results & Data Vital Signs (Past 12 Hours) Vital Signs Temp Pulse Resp BP 03/13/23 14:05 36.7 C 18 03/13/23 14:01 74 122/68
[2023-03-13] MEDS: LACTATED RINGER'S 1,000 ML IV PRN ×2 (16:16→20:05)
[2023-03-13 16:37] LABS: Hematocrit (blood only) 33.4 % (37.0-47.0); Hemoglobin 11.6 g/dl (12.0-16.0); Mean Corpuscular Hemoglobin 33.7 pg (25.0-34.0); Mean Corpuscular Hgb Conc 34.7 g/dL (32.0-36.0); Mean Corpuscular Volume 97.1 fL (80.0-100.0); Mean Platelet Volume 9.7 fL (9.4-12.4); Platelet Count 188 K/uL (130-400); RDW Standard Deviation 49.1 fL (36.4-46.3); Red Blood Count 3.44 M/uL (4.20-5.40); White Blood Count 11.19 K/ul (4.8-10.8)
[2023-03-13] MEDS: miSOPROStoL 50 MCG TAB PO SCH ×2 (16:50→21:09)
[2023-03-13 17:03] LABS: Amphetamines+Metham, Urine Neg (Neg); Barbiturates, Urine Neg (Neg); Benzodiazepine, Urine Neg (Neg); Cocaine, Urine Neg (Neg); MDMA (Ecstacy), Urine Neg (Neg); Methadone, Urine Neg (Neg); Opiate, Urine Neg (Neg); Phencyclidine, Urine Neg (Neg)
[2023-03-13] MEDS ORDERED: BUPIVACAINE 0.25% PF 30 ML VIAL ONE (20:11)
[2023-03-13] MEDS ORDERED: LIDOCAINE 2%/EPINEPHRINE 1:200,000 20 ML PF ONE (20:11)
[2023-03-13] MEDS ORDERED: fentaNYL citrate PF 100 MCG/2 ML VIAL ONE (20:11)
[2023-03-13] MEDS ORDERED: ePHEDrine sulfate 50 MG/ML AMP ONE (20:11)
[2023-03-13] MEDS ORDERED: SODIUM CHLORIDE 0.9% PF INJ 10 ML VIAL ONE (20:11)
[2023-03-13] MEDS ORDERED: fentaNYL 2MCG/ML ROPIVACAINE 1.25MG/ML 100 ML BAG EPI ONE (20:12)
--- NOTE | 2023-03-13 20:18 | Anesthesiology Consultation ---
Date of Service March 13, 2023 Assessment & Plan (1) Encounter for pre-operative examination: Chart Review Chart Review: Acceptable Risk for Labor Epidural History Height/Weight Height: 5 ft 6 in Weight: 71.668 kg Allergies Allergy/AdvReac Type Severity Reaction Status Date / Time morphine Allergy Severe ANAPHYLAXIS Verified 03/13/23 15:31 tramadol Allergy Severe ANAPHYLAXIS Verified 03/13/23 15:31 bee venom protein (honey bee) Allergy Unknown ANAPHYLAXIS Verified 03/13/23 15:31 Medications Home Medications Medication Instructions Recorded Confirmed Last Taken buprenorphine HCl 8 mg sublingual 8 mg sublingual TID 12/09/18 03/13/23 03/13/23 07:00 tablet vit no.95-ferrous 1 tab PO QAM 12/09/18 03/13/23 02/01/20 fumarate 28 mg-folic acid 800 mcg tablet () cholecalciferol (vitamin D3) 25 1,000 unit PO QAM 01/20/20 03/13/23 02/01/20 mcg (1,000 unit) capsule (Vitamin D3) omeprazole magnesium 20 mg 20 mg PO QAM 01/20/20 03/13/23 02/01/20 tablet,delayed release (Prilosec OTC) acetaminophen 325 mg tablet 325 mg PO QID PRN Pain 02/02/20 03/13/23 02/01/20 21:00 (Tylenol) 650 mg Active Medications Generic Name Dose Route Start Last Admin Trade Name Freq PRN Reason Stop Dose Admin Lactated Ringer's 1,000 mls @ 125 mls/hr 03/13/23 15:47 03/13/23 18:53 Lr IV 03/15/23 15:46 Infused .Q8H PRN Infusion L&D Protocol Protocol Misoprostol 50 mcg 03/13/23 16:00 03/13/23 16:50 Misoprostol 50 Mcg Tab PO 04/12/23 15:59 50 mcg Q4 PRETTY Administration Past Medical History Medical History (Updated 03/13/23 @ 20:18 by Deuce Roth MD) Anxiety diagnosed at age 11- on Effexor Asthma diagnosed at age 10- uses Albuterol prn and Nebulizer prn Depression diagnosed at age 11- on Effexor now 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 Now on Subutex 8mg daily Ovarian cyst Past Family History Family History Father Diabetes Grandfather (Paternal) Diabetes Grandmother (Maternal) Diabetes Lung cancer Grandfather (Maternal) Diabetes Grandfather (Paternal) Myocardial infarction Grandmother (Paternal) Myocardial infarction Past Surgical History Surgical History H/O LEEP age 19 and 21 History of cholecystectomy 2016 [place] teeth removed age 14 Social History Smoking Status: Current every day smoker tobacco type: cigarettes Do You Dip or Chew Tobacco: No Hx Alcohol Use: Yes Hx Substance Use: No substance use type: former substance user Substance Use Type Other:: HX pain pills and heroin, states clean for approx 6 years Last Used Substance Other:: clean since 2016 Physical Exam Vital Signs Last Vital Signs Temp 36.7 C 03/13/23 19:02 Pulse 69 03/13/23 19:01 Resp 18 03/13/23 19:02 BP 121/75 03/13/23 19:01 Testing Laboratory Results 03/13/23 16:07 Blood Type A Negative 03/13/23 16:07 Antibody Screen POSITIVE A 03/13/23 16:07
[2023-03-13] MEDS ORDERED: LIDOCAINE 2%/EPINEPHRINE 1:200,000 20 ML PF EPI STA (20:52)
[2023-03-13] MEDS ORDERED: NALOXONE HCL 0.4 MG/1 ML VIAL/CARP IV PRN (20:52)
[2023-03-13] MEDS ORDERED: LIDOCAINE 2% MPF LOCAL 5 ML VIAL EPI PRN (20:52)
[2023-03-13] MEDS ORDERED: fentaNYL citrate PF 100 MCG/2 ML VIAL EPI PRN (20:52)
[2023-03-13] MEDS ORDERED: BUPIVACAINE 0.25% PF 30 ML VIAL EPI STA (20:52)
[2023-03-13] MEDS ORDERED: ONDANSETRON INJ 2 MG/ML 2 ML VIAL IV PRN (20:52)
[2023-03-13] MEDS ORDERED: fentaNYL 2MCG/ML ROPIVACAINE 1.25MG/ML 100 ML BAG EPI PRN (20:52)
[2023-03-13] MEDS ORDERED: BUPIVACAINE 0.25% PF 30 ML VIAL EPI PRN (20:52)
[2023-03-13] MEDS ORDERED: SODIUM CHLORIDE 0.9% PF INJ 10 ML VIAL EPI STA (20:52)
[2023-03-13] MEDS ORDERED: SODIUM CHLORIDE 0.9% PF INJ 10 ML VIAL EPI PRN (20:52)
[2023-03-13] MEDS ORDERED: ePHEDrine sulfate 50 MG/ML AMP IV PRN (20:52)
[2023-03-13] MEDS ORDERED: NALOXONE HCL 1 MG in SODIUM CHLORIDE 0.9% 1000ML 1,000 ML IV PRN (20:52)
[2023-03-13] MEDS ORDERED: ROPIVACAINE 0.5% PF 5 MG/ML 20 ML VIAL EPI PRN (20:52)
[2023-03-13] MEDS ORDERED: fentaNYL citrate PF 100 MCG/2 ML VIAL EPI STA (20:52)
--- NOTE | 2023-03-13 21:06 | Obstetrical Progress Note ---
Date of Service March 13, 2023 Assessment & Plan (1) : Plan: Pt doing well No complaint FHR; CAT1 Ctx 2-3 Epidural analgesia exist VE; 4-5/75/-1 AROM with Amnio hook-Clear fluid Admission and Anticipated Discharge Date Admission Date: March 13, 2023 Results & Data Vital Signs (Past 12 Hours) Vital Signs Temp Pulse Resp BP Pulse Ox 03/13/23 14:05 36.7 C 18 03/13/23 21:04 64 03/13/23 21:04 123/76 03/13/23 21:00 65 03/13/23 21:00 119/70 03/13/23 20:58 100 03/13/23 20:58 66 03/13/23 20:54 63 03/13/23 20:54 112/66 03/13/23 20:53 100 03/13/23 20:53 66 03/13/23 20:52 64 03/13/23 20:52 112/65 03/13/23 20:50 60 03/13/23 20:50 115/64 03/13/23 20:48 100 03/13/23 20:48 60 03/13/23 20:48 57 L 03/13/23 20:48 117/64 03/13/23 20:46 60 03/13/23 20:46 125/67 03/13/23 20:43 99 03/13/23 20:43 70 03/13/23 20:44 68 03/13/23 20:44 127/65 03/13/23 20:38 79 L 03/13/23 20:38 69 03/13/23 20:35 93 03/13/23 20:35 94 H 03/13/23 20:33 100 03/13/23 20:33 71 03/13/23 20:28 98 03/13/23 20:28 68 03/13/23 20:23 100 03/13/23 20:23 62 03/13/23 20:18 100 03/13/23 20:18 65 03/13/23 19:02 18 03/13/23 19:02 36.7 C 18 03/13/23 19:01 69 03/13/23 19:01 121/75 03/13/23 17:55 16 03/13/23 17:55 16 03/13/23 17:55 69 03/13/23 17:55 119/63 03/13/23 16:50 66 03/13/23 16:50 117/63 03/13/23 14:01 36.7 C 74 18 122/68
[2023-03-13] MEDS ORDERED: CALCIUM CARBONATE 500 MG CHEWABLE TAB PO ONE (21:30)
[2023-03-13] MEDS ORDERED: miSOPROStoL 200 MCG TAB PR ONE (23:22)
[2023-03-13] MEDS ORDERED: bisacodyL 10 MG SUPP PR PRN (23:22)
[2023-03-13] MEDS ORDERED: DIPHTHERIA/TETANUS/PERTUSSIS Vaccine (Tdap, Age 7+yrs) 0.5mL SYR/VL IM ONE (23:22)
[2023-03-13] MEDS ORDERED: BENZOCAINE 20% AER SPR 82.5 GM CAN EXT PRN (23:22)
[2023-03-13] MEDS ORDERED: METHYLERGONOVINE MALEATE 0.2 MG/ML AMP IM ONE (23:22)
[2023-03-13] MEDS ORDERED: ACETAMINOPHEN 325 MG TAB PO PRN (23:22)
[2023-03-13] MEDS ORDERED: HYDROCORTISONE ACETATE 25 MG SUPP PR PRN (23:22)
--- NOTE | 2023-03-13 23:32 | Labor Progress Brief Note ---
Date of Service March 13, 2023 Assessment & Plan Admission and Anticipated Discharge Date Admission Date: March 13, 2023 Results & Data Vital Signs (Past 12 Hours) Vital Signs Temp Pulse Resp BP Pulse Ox 03/13/23 14:05 36.7 C 18 03/13/23 23:18 100 03/13/23 23:18 65 03/13/23 23:15 57 L 03/13/23 23:15 116/57 L 03/13/23 23:13 99 03/13/23 23:13 57 L 03/13/23 23:08 87 L 03/13/23 23:08 78 03/13/23 23:07 89 L 03/13/23 23:07 76 03/13/23 23:03 100 03/13/23 23:03 65 03/13/23 23:00 63 03/13/23 23:00 103/61 03/13/23 22:58 100 03/13/23 22:58 60 03/13/23 22:53 98 03/13/23 22:53 56 L 03/13/23 22:48 100 03/13/23 22:48 56 L 03/13/23 22:46 53 L 03/13/23 22:46 114/62 03/13/23 22:43 100 03/13/23 22:43 57 L 03/13/23 22:38 100 03/13/23 22:38 54 L 03/13/23 22:33 100 03/13/23 22:33 55 L 03/13/23 22:32 56 L 03/13/23 22:32 115/63 03/13/23 22:30 18 03/13/23 22:30 18 03/13/23 22:28 100 03/13/23 22:28 53 L 03/13/23 22:23 100 03/13/23 22:23 56 L 03/13/23 21:30 20 03/13/23 21:30 20 03/13/23 22:00 18 03/13/23 22:00 18 03/13/23 22:18 100 03/13/23 22:18 54 L 03/13/23 22:15 56 L 03/13/23 22:15 102/56 L 03/13/23 22:13 100 03/13/23 22:13 57 L 03/13/23 22:08 100 03/13/23 22:08 55 L 03/13/23 22:03 100 03/13/23 22:03 60 03/13/23 22:01 53 L 03/13/23 22:01 123/70 03/13/23 21:58 100 03/13/23 21:58 58 L 03/13/23 21:53 100 03/13/23 21:53 55 L 03/13/23 21:48 100 03/13/23 21:48 57 L 03/13/23 21:46 56 L 03/13/23 21:46 139/73 03/13/23 21:43 100 03/13/23 21:43 62 03/13/23 21:40 92 03/13/23 21:40 62 03/13/23 21:38 100 03/13/23 21:38 57 L 03/13/23 21:35 94 03/13/23 21:35 61 03/13/23 21:33 100 03/13/23 21:33 57 L 03/13/23 21:30 68 03/13/23 21:30 128/82 03/13/23 21:28 100 03/13/23 21:28 68 03/13/23 21:28 89 L 03/13/23 21:28 69 03/13/23 21:23 100 03/13/23 21:23 67 03/13/23 21:18 100 03/13/23 21:18 66 03/13/23 21:10 37.2 C 03/13/23 21:13 100 03/13/23 21:13 64 03/13/23 21:14 60 03/13/23 21:14 131/77 03/13/23 21:10 62 03/13/23 21:10 128/78 03/13/23 21:08 100 03/13/23 21:08 63 03/13/23 20:50 18 03/13/23 20:50 18 03/13/23 20:55 18 03/13/23 20:55 18 03/13/23 21:00 18 03/13/23 21:00 18 03/13/23 21:03 100 03/13/23 21:03 61 03/13/23 21:04 64 03/13/23 21:04 123/76 03/13/23 21:00 65 06/27/23 21:00 119/70 03/13/23 20:58 100 03/13/23 20:58 66 03/13/23 20:54 63 03/13/23 20:54 112/66 03/13/23 20:53 100 03/13/23 20:53 66 03/13/23 20:52 64 03/13/23 20:52 112/65 03/13/23 20:50 60 03/13/23 20:50 115/64 03/13/23 20:48 100 03/13/23 20:48 60 03/13/23 20:48 57 L 03/13/23 20:48 117/64 03/13/23 20:46 60 03/13/23 20:46 125/67 03/13/23 20:43 99 03/13/23 20:43 70 03/13/23 20:44 68 03/13/23 20:44 127/65 03/13/23 20:38 79 L 03/13/23 20:38 69 03/13/23 20:35 93 03/13/23 20:35 94 H 03/13/23 20:33 100 03/13/23 20:33 71 03/13/23 20:28 98 03/13/23 20:28 68 03/13/23 20:23 100 03/13/23 20:23 62 03/13/23 20:18 100 03/13/23 20:18 65 03/13/23 19:02 18 03/13/23 19:02 36.7 C 18 03/13/23 19:01 69 03/13/23 19:01 121/75 03/13/23 17:55 16 03/13/23 17:55 16 03/13/23 17:55 69 03/13/23 17:55 119/63 03/13/23 16:50 66 03/13/23 16:50 117/63 03/13/23 14:01 36.7 C 74 18 122/68 Medications Administered DELIVERY NOTE Patient delivered a live male in left occiput anterior presentation there was no nuchal cord. was delivered and placed on mother's abdomen. Delayed cord clamping was performed. Cord blood is obtained Cord gasses not obtained Meconium is not present Placenta is spontaneously delivered. Placenta appears classified with 3 vessel cord Inspection of the perineum showed no laceration or tears. Rectal exam post repair showed good sphincter tone. Estimated blood loss is 450 cc per Infants weight and scores are in the pediatric record Mother and baby are stable in in the recovery
[2023-03-14] MEDS: IBUPROFEN 600 MG TAB PO PRN ×4 (01:08→18:14)
[2023-03-14] MEDS: miSOPROStoL 50 MCG TAB PO SCH (06:27)
[2023-03-14 06:38] LABS: Hematocrit (blood only) 35.1 % (37.0-47.0); Hemoglobin 12.4 g/dl (12.0-16.0); Mean Corpuscular Hemoglobin 34.2 pg (25.0-34.0); Mean Corpuscular Hgb Conc 35.3 g/dL (32.0-36.0); Mean Corpuscular Volume 96.7 fL (80.0-100.0); Mean Platelet Volume 9.8 fL (9.4-12.4); Platelet Count 189 K/uL (130-400); RDW Coefficient of Variation 13.7 % (11.5-14.5); RDW Standard Deviation 48.7 fL (36.4-46.3); Red Blood Count 3.63 M/uL (4.20-5.40); White Blood Count 14.11 K/ul (4.8-10.8)
[2023-03-14] MEDS: PRENATAL VITAMIN 1 TAB PO SCH (07:42)
[2023-03-14] MEDS: DOCUSATE SODIUM 100 MG CAP PO SCH ×3 (07:42→21:56)
[2023-03-14] MEDS ORDERED: buprenorphine HCL 8 MG SUBL SL SCH (09:00)
--- NOTE | 2023-03-14 09:10 | Delivery Summary ---
Vaginal Delivery Summary Date of Service March 13, 2023 Vaginal Delivery Summary DELIVERY NOTE Patient delivered a live male in left occiput anterior presentation there was no nuchal cord. was delivered and placed on mother's abdomen. Delayed cord clamping was performed. Cord blood is obtained Cord gasses not obtained Meconium is not present Placenta is spontaneously delivered. Placenta appears classified with 3 vessel cord Inspection of the perineum showed no laceration or tears. Rectal exam post repair showed good sphincter tone. Estimated blood loss is 450 cc per Infants weight and scores are in the pediatric record Mother and baby are stable in in the recovery
--- NOTE | 2023-03-14 09:41 | Obstetrical Progress Note ---
Date of Service March 14, 2023 Subjective Ambulation: ambulating normally Voiding: no voiding problems Passing Gas:: Yes Diet Tolerance:: regular diet Lochia:: Small Feeding Type:: breast feeding Current Pain Level(1-10): 0 doing well Physical Exam Constitutional WD/WN, vitals as above Gastrointestinal (Abdomen) Inspection/Auscultation: abdomen normal to inspection fundus firm below U Musculoskeletal Extremities: extremities normal to inspection Skin no rashes, warm and dry Neurologic patellar DTR's 2+ bilat, sensation intact Psychiatric A+Ox3, euthymic affect Results & Data Vital Signs (Past 12 Hours) Vital Signs Temp Pulse Pulse Resp BP BP Pulse Ox 03/14/23 07:30 03/14/23 07:30 36.5 C 53 L 18 119/70 98 03/14/23 05:24 36.6 C 61 14 129/77 96 03/14/23 02:04 36.5 C 60 16 130/78 97 03/14/23 00:00 59 L 16 134/62 03/13/23 23:45 60 16 118/63 03/13/23 23:30 60 18 118/63 03/13/23 23:15 60 18 118/63 03/14/23 01:30 72 151/65 H 03/14/23 01:16 64 133/60 03/14/23 00:45 67 152/72 H 03/14/23 00:30 68 147/74 H 03/14/23 00:15 52 L 141/69 H 03/14/23 00:00 59 L 134/62 03/13/23 23:30 60 03/13/23 23:30 118/63 03/13/23 23:18 100 03/13/23 23:18 65 03/13/23 23:15 57 L 03/13/23 23:15 116/57 L 03/13/23 23:13 99 03/13/23 23:13 57 L 03/13/23 23:08 87 L 03/13/23 23:08 78 03/13/23 23:07 89 L 03/13/23 23:07 76 03/13/23 23:03 100 03/13/23 23:03 65 03/13/23 23:00 63 03/13/23 23:00 103/61 03/13/23 22:58 100 03/13/23 22:58 60 03/13/23 22:53 98 03/13/23 22:53 56 L 03/13/23 22:48 100 03/13/23 22:48 56 L 03/13/23 22:46 53 L 03/13/23 22:46 114/62 03/13/23 22:43 100 03/13/23 22:43 57 L 03/13/23 22:38 100 03/13/23 22:38 54 L 03/13/23 22:33 100 03/13/23 22:33 55 L 03/13/23 22:32 56 L 03/13/23 22:32 115/63 03/13/23 22:30 18 03/13/23 22:30 18 03/13/23 22:28 100 03/13/23 22:28 53 L 03/13/23 22:23 100 03/13/23 22:23 56 L 03/13/23 22:00 18 03/13/23 22:00 18 03/13/23 22:18 100 03/13/23 22:18 54 L 03/13/23 22:15 56 L 03/13/23 22:15 102/56 L 03/13/23 22:13 100 03/13/23 22:13 57 L 03/13/23 22:08 100 03/13/23 22:08 55 L 03/13/23 22:03 100 03/13/23 22:03 60 03/13/23 22:01 53 L 03/13/23 22:01 123/70 03/13/23 21:58 100 03/13/23 21:58 58 L 03/13/23 21:53 100 03/13/23 21:53 55 L 03/13/23 21:48 100 03/13/23 21:48 57 L 03/13/23 21:46 56 L 03/13/23 21:46 139/73 03/13/23 21:43 100 03/13/23 21:43 62 O2 Del Method 03/14/23 07:30 Room Air 03/14/23 07:30 Room Air 03/14/23 05:24 Room Air 03/14/23 02:04 Room Air 03/14/23 00:00 03/13/23 23:45 03/13/23 23:30 03/13/23 23:15 03/14/23 01:30 03/14/23 01:16 03/14/23 00:45 03/14/23 00:30 03/14/23 00:15 03/14/23 00:00 03/13/23 23:30 03/13/23 23:30 03/13/23 23:18 03/13/23 23:18 03/13/23 23:15 03/13/23 23:15 03/13/23 23:13 03/13/23 23:13 03/13/23 23:08 03/13/23 23:08 03/13/23 23:07 03/13/23 23:07 03/13/23 23:03 03/13/23 23:03 03/13/23 23:00 03/13/23 23:00 03/13/23 22:58 03/13/23 22:58 03/13/23 22:53 03/13/23 22:53 03/13/23 22:48 03/13/23 22:48 03/13/23 22:46 03/13/23 22:46 03/13/23 22:43 03/13/23 22:43 03/13/23 22:38 03/13/23 22:38 03/13/23 22:33 03/13/23 22:33 03/13/23 22:32 03/13/23 22:32 03/13/23 22:30 03/13/23 22:30 03/13/23 22:28 03/13/23 22:28 03/13/23 22:23 03/13/23 22:23 03/13/23 22:00 03/13/23 22:00 03/13/23 22:18 03/13/23 22:18 03/13/23 22:15 03/13/23 22:15 03/13/23 22:13 03/13/23 22:13 03/13/23 22:08 03/13/23 22:08 03/13/23 22:03 03/13/23 22:03 03/13/23 22:01 03/13/23 22:01 03/13/23 21:58 03/13/23 21:58 03/13/23 21:53 03/13/23 21:53 03/13/23 21:48 03/13/23 21:48 03/13/23 21:46 03/13/23 21:46 03/13/23 21:43 03/13/23 21:43 Laboratory Results 03/13/23 03/13/23 03/13/23 16:07 16:07 Unknown WBC 11.19 H RBC 3.44 L Hgb 11.6 L Hct 33.4 L MCV 97.1 MCH 33.7 MCHC 34.7 RDW Std Deviation 49.1 H RDW Coeff of Dmitry 14.0 Plt Count 188 MPV 9.7 Urine Opiates Screen Ur Methadone, Qual Urine Barbiturates Ur Phencyclidine (PCP) U Amphetamin/Meth Scrn MDMA (Ecstasy) Screen U Benzodiazepines Scrn Ur Cocaine Metabolite U Marijuana (THC) Screen SARS-CoV-2, RNA, NAAT NEGATIVE Blood Type A Negative Antibody Screen POSITIVE A Antibody Identification Anti-D due to RhIg Antibody ID Comment Screen 03/13/23 03/14/23 03/14/23 Unknown 06:14 07:27 WBC 14.11 H RBC 3.63 L Hgb 12.4 Hct 35.1 L MCV 96.7 MCH 34.2 H MCHC 35.3 RDW Std Deviation 48.7 H RDW Coeff of Dmitry 13.7 Plt Count 189 MPV 9.8 Urine Opiates Screen Neg Ur Methadone, Qual Neg Urine Barbiturates Neg Ur Phencyclidine (PCP) Neg U Amphetamin/Meth Scrn Neg MDMA (Ecstasy) Screen Neg U Benzodiazepines Scrn Neg Ur Cocaine Metabolite Neg U Marijuana (THC) Screen Neg SARS-CoV-2, RNA, NAAT Blood Type A Negative Antibody Screen Cancelled Antibody Identification Antibody ID Comment Screen Negative
--- NOTE | 2023-03-14 09:53 | Anesthesia Procedure Note ---
Date of Service March 14, 2023 Anesthesia Post Epidural Note Vital Signs Vital Signs: Temp Pulse Resp BP Pulse Ox O2 Del Method 97.7 F 53 L 18 119/70 98 Room Air 03/14/23 07:30 03/14/23 07:30 03/14/23 07:30 03/14/23 07:30 03/14/23 07:30 03/14/23 07:30 Notes Mental Status: alert / awake / arousable and participated in evaluation Nausea / Vomiting: adequately controlled Pain: adequately controlled Airway Patency, RR, SpO2: stable & adequate BP & HR: stable & adequate Hydration State: stable & adequate Neuraxial Anesthesia: was administered and sensory block is resolving Anesthetic Complications: no major complications apparent and Pt Satisfied with anesthetic care Epidural: Removed without complications and With tip intact
[2023-03-14] MEDS: NICOTINE 7 MG/24 HR TDSY TD SCH (11:47)
[2023-03-14] MEDS: SERTRALINE HCL 100 MG TABLET PO SCH (14:13)
[2023-03-14] MEDS ORDERED: bisacodyL 5 MG TABEC PO SCH (20:00)
[2023-03-15 07:02] LABS: Hematocrit (blood only) 32.2 % (37.0-47.0); Hemoglobin 11.4 g/dl (12.0-16.0)
[2023-03-15] MEDS: DOCUSATE SODIUM 100 MG CAP PO SCH (08:23)
[2023-03-15] MEDS: IBUPROFEN 600 MG TAB PO PRN (08:23)
[2023-03-15] MEDS: PRENATAL VITAMIN 1 TAB PO SCH (08:23)
[2023-03-15] MEDS: NICOTINE 7 MG/24 HR TDSY TD SCH (08:26)
[2023-03-15] MEDS: SERTRALINE HCL 100 MG TABLET PO SCH (08:26)
[2023-03-15] MEDS ORDERED: buprenorphine HCL 2 MG SUBL SL SCH (09:00)
--- NOTE | 2023-03-15 09:41 | Obstetrical Progress Note ---
Date of Service March 15, 2023 Subjective Ambulation: ambulating normally Voiding: no voiding problems Passing Gas:: Yes Diet Tolerance:: regular diet Lochia:: Small Feeding Type:: breast feeding Current Pain Level(1-10): 0 doing well. [facility] Physical Exam Constitutional WD/WN, vitals as above Gastrointestinal (Abdomen) normal bowel sounds, soft, nontender, no hepatosplenomegaly Musculoskeletal Extremities: extremities normal to inspection Neurologic patellar DTR's 2+ bilat, sensation intact Results & Data Vital Signs (Past 12 Hours) Vital Signs Temp Pulse Resp BP Pulse Ox O2 Del Method 03/15/23 00:33 36.4 C L 60 14 131/84 100 Room Air Laboratory Results Laboratory Results - last 72 hr 03/13/23 03/13/23 03/13/23 16:07 16:07 Unknown WBC 11.19 H RBC 3.44 L Hgb 11.6 L Hct 33.4 L MCV 97.1 MCH 33.7 MCHC 34.7 RDW Std Deviation 49.1 H RDW Coeff of Dmitry 14.0 Plt Count 188 MPV 9.7 Urine Opiates Screen Ur Methadone, Qual Urine Barbiturates Ur Phencyclidine (PCP) U Amphetamin/Meth Scrn MDMA (Ecstasy) Screen U Benzodiazepines Scrn Ur Cocaine Metabolite U Marijuana (THC) Screen SARS-CoV-2, RNA, NAAT NEGATIVE Blood Type A Negative Antibody Screen POSITIVE A Antibody Identification Anti-D due to RhIg Antibody ID Comment Screen 03/13/23 03/14/23 03/14/23 Unknown 06:14 07:27 WBC 14.11 H RBC 3.63 L Hgb 12.4 Hct 35.1 L MCV 96.7 MCH 34.2 H MCHC 35.3 RDW Std Deviation 48.7 H RDW Coeff of Dmitry 13.7 Plt Count 189 MPV 9.8 Urine Opiates Screen Neg Ur Methadone, Qual Neg Urine Barbiturates Neg Ur Phencyclidine (PCP) Neg U Amphetamin/Meth Scrn Neg MDMA (Ecstasy) Screen Neg U Benzodiazepines Scrn Neg Ur Cocaine Metabolite Neg U Marijuana (THC) Screen Neg SARS-CoV-2, RNA, NAAT Blood Type A Negative Antibody Screen Cancelled Antibody Identification Antibody ID Comment Screen Negative 03/15/23 06:45 WBC RBC Hgb 11.4 L Hct 32.2 L MCV MCH MCHC RDW Std Deviation RDW Coeff of Dmitry Plt Count MPV Urine Opiates Screen Ur Methadone, Qual Urine Barbiturates Ur Phencyclidine (PCP) U Amphetamin/Meth Scrn MDMA (Ecstasy) Screen U Benzodiazepines Scrn Ur Cocaine Metabolite U Marijuana (THC) Screen SARS-CoV-2, RNA, NAAT Blood Type Antibody Screen Antibody Identification Antibody ID Comment Screen
== END 2023-03-15 16:15 | disposition home or self-care (01) | DRG 807 ==
LOC: 4S1 13:52 → 4E2 03-14 01:54